=== PATIENT | male | born 1955 | race Caucasian/White ===

== ENCOUNTER 2023-09-05 16:31 | Inpatient (IN) | payer MEDICARE ==
--- NOTE | 2023-09-05 16:55 | ED ---
SOB HPI - General Source: RN notes reviewed <Eloisa Holly - Last Filed: 09/05/23 16:53> <Zakia Gerard - Last Filed: 09/06/23 02:02> - General Stated Complaint: sob Time Seen by Provider: 09/05/23 16:53 - History of Present Illness Initial Comments: Patient is a 68-year-old male who presents the emergency department for shortness of breath and cough. Symptoms started 2 days ago. No fever or chills. No chest pain. Patient has history of COPD. States he got an x-ray as primary care provider's office today and was called told it was abnormal and to go to the ED for evaluation. (Eloisa Holly) Quick note reviewed: 68-year-old male with past medical history significant for hypertension, CHF presents to the emergency department with a chief complaint of worsening shortness of breath. He reports worsening shortness of breath the last 3 weeks. He reports it has progressively gotten worse. He reports typically a dry cough however earlier today he coughed up bright red blood. He reports that he had an x-ray performed by his primary care physician which showed increasing opacities. He denies any known fevers. He has felt chilled and fatigued with associated nausea. Patient reports having to use his rescue inhaler more frequently. He denies any chest pain, palpitations. Patient has previous tobacco use history. (Zakia Gerard) - Related Data Home Medications Medication Instructions Recorded Confirmed Albuterol Inhaler [Ventolin Hfa 2 puff INHALATION RT-Q6H PRN 09/05/23 09/05/23 Inhaler] Aspirin EC [Ecotrin Low Dose] 81 mg PO DAILY 09/05/23 09/05/23 Azithromycin [Zithromax Z Pack] See Taper PO DIRECTED 09/05/23 09/05/23 Cetirizine HCl [Zyrtec] 10 mg PO DAILY 09/05/23 09/05/23 Fluticasone Nasal [place] [Flonase 1 spray EA NOSTRIL DAILY 09/05/23 09/05/23 Nasal [place]] Fluticasone/Umeclidin/Vilanter 1 puff INHALATION RT-DAILY 09/05/23 09/05/23 [Trelegy Ellipta 200-62.5-25] Labetalol [Trandate] 100 mg PO BID 09/05/23 09/05/23 Montelukast [Singulair] 10 mg PO DAILY 09/05/23 09/05/23 Nystatin 100,000 Unit/ml Susp 4 ml PO QID 09/05/23 09/05/23 [Mycostatin Oral Susp] Sulfamethox-Tmp 800-160Mg [Bactrim 1 tab PO Q12HR 09/05/23 09/05/23 DS 800-160 mg] predniSONE [Deltasone] 40 mg PO DAILY 09/05/23 09/05/23 Allergies Allergy/AdvReac Type Severity Reaction Status Date / Time No Known Allergies Allergy Verified 09/05/23 22:57 Review of Systems ROS Other: All systems not noted in ROS Statement are negative. <Eloisa Holly - Last Filed: 09/05/23 16:53> ROS Other: All systems not noted in ROS Statement are negative. <Zakia Gerard - Last Filed: 09/06/23 02:02> ROS Statement: Those systems with pertinent positive or pertinent negative responses have been documented in the HPI. General Exam <Eloisa Holly - Last Filed: 09/05/23 16:53> <Zakia Gerard - Last Filed: 09/06/23 02:02> - General Exam Comments Initial Comments: Visual Physical Exam Vital signs reviewed General: Well-appearing, nontoxic, no acute distress. Head: Normocephalic, atraumatic Eyes: PERRLA, EOMI ENT: Airway patent Chest: Nonlabored breathing Skin: No visual rash, normal skin tone Neuro: Alert and oriented 3 Musculoskeletal: No gross abnormalities (Eloisa Holly) General: Alert, in no acute distress Head: atraumatic normocephalic. Eyes PERRL, EOMI intact, mucous membranes moist Respiratory: Lungs clear to auscultation bilaterally Cardiovascular: Heart rate regular rate and rhythm Abdominal: Soft without guarding or rebound Extremities: Normal inspection with full range of motion and normal capillary refill Neuroogic: alert and oriented 3, CN II-XII intact, able to ambulate with steady gait Skin: warm dry and intact with normal color (Zakia Gerard) Course <Zakia Gerard - Last Filed: 09/06/23 02:02> Vital Signs 09/05/23 09/05/23 09/05/23 16:51 22:34 22:44 Temperature 97.6 F Pulse Rate 83 87 88 Respiratory 16 Rate Blood Pressure 139/57 O2 Sat by Pulse 96 Oximetry 09/05/23 23:28 Temperature Pulse Rate 96 Respiratory 20 Rate Blood Pressure 127/82 O2 Sat by Pulse 97 Oximetry - Reevaluation(s) Reevaluation #1: 09/05/23 21:[address] Arnett who is in the emergency department. Dr. Arnett at bedside to evaluate patient. (Zakia Gerard) Reevaluation #2: 09/05/23 22:50 I interpreted the following: EKG performed at 22:46 rate 89 bpm normal sinus rhythm HI interval 146, QRS duration 97, QT/QTc 350/399 (Zakia Gerard) Reevaluation #3: 09/06/23 00:21 Patient reevaluated and updated on laboratory and CT results. Patient agre eable with the plan for admission. (Zakia Gerard) Medical Decision Making <Eloisa Holly - Last Filed: 09/05/23 16:53> - Lab Data Result diagrams: 09/05/23 22:08 09/05/23 22:08 <Zakia Gerard - Last Filed: 09/06/23 02:02> - Medical Decision Making I performed the QuickNote portion of this chart - Eloisa Holly PA-C (Eloisa Holly) Was pt. sent in by a medical professional or institution (ROSY Noel, [employer], urgent care, hospital, or intermediate...) When possible be specific @ -[No] Did you speak to anyone other than the patient for history (EMS, parent, family, police, friend...)? What history was obtained from this source @ -[No] Did you review nursing and triage notes (agree or disagree)? Why? @ -[I reviewed and agree with nursing and triage notes] Were old charts reviewed (outside hosp., previous admission, EMS record, old EKG, old radiological studies, urgent care reports/EKG's, intermediate records)? Report findings @ -[No old charts were reviewed] Differential Diagnosis (chest pain, altered mental status, abdominal pain women, abdominal pain men, vaginal bleeding, weakness, fever, dyspnea, syncope, headache, dizziness, GI bleed, back pain, seizure, CVA, palpatations, mental health, musculoskeletal)? @ -[not applicable] EKG interpreted by me (3pts min.). @ -[As above] X-rays interpreted by me (1pt min.). @ -[None done] CT interpreted by me (1pt min.). @ -yes U/S interpreted by me (1pt. min.). @ -[None done] What testing was considered but not performed or refused? (CT, X-rays, U/S, labs)? Why? @ -[None] What meds were considered but not given or refused? Why? @ -[None] Did you discuss the management of the patient with other professionals (professionals i.e. , PA, [employer], lab, RT, psych nurse, social secretary, lining finisher, teacher, eeo officer, pillowcase cutter)? Give summary @ -Dr. Arnett Was smoking cessation discussed for >3mins.? @ -[No] Was critical care preformed (if so, how long)? @ -[No] Were there social determinants of health that impacted care today? How? (Homelessness, low income, unemployed, alcoholism, drug addiction, transportation, low edu. Level, literacy, decrease access to med. care, [place] [facility], rehab)? @ -[No] Was there de-escalation of care discussed even if they declined (Discuss DNR or withdrawal of care, Hospice)? DNR status @ -[No] What co-morbidities impacted this encounter? (DM, HTN, Smoking, COPD, CAD, Cancer, CVA, ARF, Chemo, Hep., AIDS, mental health diagnosis, sleep apnea, morbid obesity)? @ -[None] Was patient admitted / discharged? Hospital course, mention meds given and [place], prescriptions, significant lab abnormalities, going to OR and other pertinent info. @ -Admission. This is a pleasant 68-year-old male with past medical history significant for CHF and hypertension who presents the emergency department with increased shortness of breath. Patient had a thorough history and physical exam performed. Physical exam essentially unremarkable. Vital signs stable. Heart rate regular rate and rhythm, lungs clear to auscultation bilaterally abdomen soft and nontender. Patient laboratory studies performed which revealed: WBC 10.6, hemoglobin 15.7 coagulation studies unremarkable, sodium 134 potassium 5.0 BUN 21, creatinine 1.09 troponin negative BNP 48 urinalysis negative. Covid, influenza RSV negative CT reveals large right infra-auricular mass that measures 10.2 x 13.0 cm extending into the inferior mediastinum this may be concerning for lung cancer. There is posterior patchy consolidation in the right lower lobe concerning for pneumonia. I discussed the results in detail with the patient and the patient's family who verbalized understanding all questions were addressed. He'll be started on antibiotics per protocol. Patient should case discussed with Dr. Arnett who agrees and accepts the patient for admission with consult to Dr. Bragg. Case discussed with Dr. Hooper [facility] who agrees with plan of care Undiagnosed new problem with uncertain prognosis? @ -[No] Drug Therapy requiring intensive monitoring for toxicity (Heparin, Nitro, Insulin, Cardizem)? @ -[No] Were any procedures done? @ -[No] Diagnosis/symptom? @ -Shortness of Breath - Right lower lobe Pnuemonia - Perihilar lung mass Acute, or Chronic, or Acute on Chronic? @ -Acute Uncomplicated (without systemic symptoms) or Complicated (systemic symptoms)? @ -Uncomplicated Side effects of treatment? @ -[No] Exacerbation, Progression, or Severe Exacerbation? @ -[No] Poses a threat to life or bodily function? How? (Chest pain, [place], [place], pneumonia, PE, COPD, DKA, ARF, appy, cholecystitis, CVA, Diverticulitis, Homicidal, Suicidal, threat to staff... and all critical care pts) @ -yes, Pneumonia (Zakia Gerard) - Lab Data Lab Results 09/05/23 09/05/23 09/05/23 Range/Units 22:08 22:08 22:08 WBC 10.6 (3.8-10.6) k/uL RBC 5.09 (4.30-5.90) m/uL Hgb 15.7 (13.0-17.5) gm/dL Hct 46.8 (39.0-53.0) % MCV 92.0 (80.0-100.0) fL MCH 30.9 (25.0-35.0) pg MCHC 33.6 (31.0-37.0) g/dL RDW 14.2 (11.5-15.5) % Plt Count 214 (150-450) k/uL MPV 8.2 Neutrophils % 90 % Lymphocytes % 6 % Monocytes % 3 % Eosinophils % 0 % Basophils % 0 % Neutrophils # 9.6 H (1.3-7.7) k/uL Lymphocytes # 0.6 L (1.0-4.8) k/uL Monocytes # 0.3 (0-1.0) k/uL Eosinophils # 0.0 (0-0.7) k/uL Basophils # 0.0 (0-0.2) k/uL PT 11.2 (10.0-12.5) sec INR 1.0 (<1.2) APTT 25.5 (22.0-30.0) sec Sodium 134 L (137-145) mmol/L Potassium 5.0 (3.5-5.1) mmol/L Chloride 102 (98-107) mmol/L Carbon Dioxide 19 L (22-30) mmol/L Anion Gap 13 mmol/L BUN 21 H (9-20) mg/dL Creatinine 1.09 (0.66-1.25) mg/dL Est GFR (CKD-EPI)AfAm 79 (>60 ml/min/1.73 sqM) Est GFR (CKD-EPI)NonAf 68 (>60 ml/min/1.73 sqM) Glucose 148 H (74-99) mg/dL Calcium 9.8 (8.4-10.2) mg/dL Total Bilirubin 1.3 (0.2-1.3) mg/dL AST 27 (17-59) U/L ALT 20 (4-49) U/L Alkaline Phosphatase 91 (38-126) U/L Troponin I (0.000-0.034) ng/mL NT-Pro-B Natriuret Pep 48 pg/mL Total Protein 8.1 (6.3-8.2) g/dL Albumin 4.3 (3.5-5.0) g/dL Influenza Type A (PCR) (Not Detectd) Influenza Type B (PCR) (Not Detectd) RSV (PCR) (Not Detectd) SARS-CoV-2 (PCR) (Not Detectd) 10/17/23 10/17/23 Range/Units 22:08 22:25 WBC (3.8-10.6) k/uL RBC (4.30-5.90) m/uL Hgb (13.0-17.5) gm/dL Hct (39.0-53.0) % MCV (80.0-100.0) fL MCH (25.0-35.0) pg MCHC (31.0-37.0) g/dL RDW (11.5-15.5) % Plt Count (150-450) k/uL MPV Neutrophils % % Lymphocytes % % Monocytes % % Eosinophils % % Basophils % % Neutrophils # (1.3-7.7) k/uL Lymphocytes # (1.0-4.8) k/uL Monocytes # (0-1.0) k/uL Eosinophils # (0-0.7) k/uL Basophils # (0-0.2) k/uL PT (10.0-12.5) sec INR (<1.2) APTT (22.0-30.0) sec Sodium (137-145) mmol/L Potassium (3.5-5.1) mmol/L Chloride (98-107) mmol/L Carbon Dioxide (22-30) mmol/L Anion Gap mmol/L BUN (9-20) mg/dL Creatinine (0.66-1.25) mg/dL Est GFR (CKD-EPI)AfAm (>60 ml/min/1.73 sqM) Est GFR (CKD-EPI)NonAf (>60 ml/min/1.73 sqM) Glucose (74-99) mg/dL Calcium (8.4-10.2) mg/dL Total Bilirubin (0.2-1.3) mg/dL AST (17-59) U/L ALT (4-49) U/L Alkaline Phosphatase (38-126) U/L Troponin I <0.012 (0.000-0.034) ng/mL NT-Pro-B Natriuret Pep pg/mL Total Protein (6.3-8.2) g/dL Albumin (3.5-5.0) g/dL Influenza Type A (PCR) Not Detected (Not Detectd) Influenza Type B (PCR) Not Detected (Not Detectd) RSV (PCR) Not Detected (Not Detectd) SARS-CoV-2 (PCR) Not Detected (Not Detectd) Disposition <Eloisa Holly - Last Filed: 09/05/23 16:53> Is patient prescribed a controlled substance at d/c from ED?: No Time of Disposition: 21:14 <Zakia Gerard - Last Filed: 09/06/23 02:02> Clinical Impression: Community acquired pneumonia, Shortness of breath, Lung mass Disposition: ADMITTED IP TO THIS HOSP Condition: Fair
[2023-09-05] MEDS ORDERED: RX INFO: IV CONTRAST WAS GIVEN 1 EACH MISC MISCELLANE PRN (20:34)
[2023-09-05] MEDS ORDERED: IPRATROPIUM-ALBUTEROL 3 ML NEB INHALATION STA (22:25)
[2023-09-05 22:29] LABS: Basophils % (A) 0 %; Eosinophils % (A) 0 %; HCT 46.8 % (39.0-53.0); HGB 15.7 gm/dL (13.0-17.5); Lymphocytes # (A) 0.6 k/uL (1.0-4.8); Lymphocytes % (A) 6 %; MCH 30.9 pg (25.0-35.0); MCHC 33.6 g/dL (31.0-37.0); Mean Platelet Volume 8.2; Monocytes # (A) 0.3 k/uL (0-1.0); Monocytes % (A) 3 %; Neutrophils # (A) 9.6 k/uL (1.3-7.7); Neutrophils % (A) 90 %; Platelet Count 214 k/uL (150-450); RBC 5.09 m/uL (4.30-5.90); RDW 14.2 % (11.5-15.5); WBC 10.6 k/uL (3.8-10.6)
[2023-09-05 22:33] LABS: ALT 20 U/L (4-49); AST 27 U/L (17-59); African American GFR (CKD) 79 (>60 ml/min/1.73 sqM); Albumin 4.3 g/dL (3.5-5.0); Alkaline Phosphatase 91 U/L (38-126); Anion Gap 13 mmol/L; Blood Urea Nitrogen 21 mg/dL (9-20); Calcium 9.8 mg/dL (8.4-10.2); Carbon Dioxide 19 mmol/L (22-30); Chloride 102 mmol/L (98-107); Glucose 148 mg/dL (74-99); Non-African American GFR(CKD) 68 (>60 ml/min/1.73 sqM); Partial Thromboplastin Time 25.5 sec (22.0-30.0); Prothrombin Time 11.2 sec (10.0-12.5); Sodium 134 mmol/L (137-145); Total Bilirubin 1.3 mg/dL (0.2-1.3); Total Protein 8.1 g/dL (6.3-8.2)
[2023-09-05 22:41] LABS: NT-Pro-B-Type Natriuretic Pept 48 pg/mL
[2023-09-05] MEDS ORDERED: NALOXONE 0.4 MG/ML 1 ML VIAL IV PRN (23:00)
[2023-09-05] MEDS ORDERED: ACETAMINOPHEN TAB 325 MG TAB PO PRN (23:00)
--- NOTE | 2023-09-05 23:40 | CT ---
EXAM: CT Angiography Chest With Intravenous Contrast CLINICAL HISTORY: ITS.REASON CT Reason: hemoptysis TECHNIQUE: Axial computed tomographic angiography images of the chest with intravenous contrast. CTDI is 50.3 mGy and DLP is 529 mGy-cm. This CT exam was performed using one or more of the following dose reduction techniques: automated exposure control, adjustment of the mA and/or kV according to patient size, and/or use of iterative reconstruction technique. MIP reconstructed images were created and reviewed. COMPARISON: No relevant prior studies available. FINDINGS: Pulmonary arteries: Unremarkable. No pulmonary embolism. Aorta: Atherosclerotic changes of the aorta. No thoracic aortic aneurysm. Lungs: Posterior patchy consolidation concerning for RIGHT lower lobar pneumonia. Pleural space: Mild pulmonary vascular redistribution/congestion. No pleural effusions. Cardiomegaly. Correlate for minimal congestive heart failure. No pneumothorax. Heart: See above. Mediastinum: Large RIGHT infrahilar mass measures approximately 10.2 x 13.0 cm, extending into the inferior mediastinum, concerning for lung cancer. Pathologic enlarged mediastinal and hilar lymph nodes. Bones/joints: Degenerative changes of the spine. No acute fracture. No dislocation. Soft tissues: Unremarkable. Lymph nodes: Unremarkable. No enlarged lymph nodes. Kidneys and ureters: Renal cysts. IMPRESSION: 1. Large RIGHT infrahilar mass measures approximately 10.2 x 13.0 cm, extending into the inferior mediastinum, concerning for lung cancer. Pathologic enlarged mediastinal and hilar lymph nodes. 2. Posterior patchy consolidation concerning for RIGHT lower lobar pneumonia. 3. Mild pulmonary vascular redistribution/congestion. No pleural effusions. Cardiomegaly. Correlate for minimal congestive heart failure.
[2023-09-05] MEDS ORDERED: IPRATROPIUM-ALBUTEROL 3 ML NEB INHALATION PRN (23:52)
[2023-09-05] MEDS ORDERED: PNEUMONIA PROTOCOL UTILIZED 1 EACH MISC PO PRN (23:52)
[2023-09-05] MEDS ORDERED: AZITHROMYCIN 500 MG in SODIUM CHLORIDE 0.9% 250 ML IVPB STA (23:52)
[2023-09-06] MEDS: SODIUM CHLORIDE 0.9% 1,000 ML IV SCH (00:24)
[2023-09-06 00:57] LABS: Appearance,Urine Clear (Clear); Bilirubin,Urine Negative (Negative); Blood,Urine Trace (Negative); Color,Urine Colorless; Glucose,Urine (UA) Negative (Negative); Ketones,Urine Trace (Negative); Leukocyte Esterase,Urine Negative (Negative); Nitrite,Urine Negative (Negative); PH, Urine 5.5 (5.0-8.0); Protein,Urine Negative (Negative); RBC,Urine 4 /hpf (0-5); Urobilinogen,Urine <2.0 mg/dL (<2.0); WBC,Urine 1 /hpf (0-5)
[2023-09-06 01:03] LABS: Specific Gravity,Urine >1.050 (1.001-1.035)
--- NOTE | 2023-09-06 03:14 | P.CNPUL ---
History of Present Illness Consult date: 09/06/23 Requesting physician: Jassi Arnett Reason for consult: pneumonia, abnormal CXR/CT Chief complaint: Shortness of breath and cough History of present illness: I am seeing this patient in new consultation today 09/06/2023 in the emergency room after he presented yesterday afternoon with complaints of shortness of breath and hemoptysis. He also had an abnormal chest x-ray at his PCP office, Dr. Leal out of [place]. Patient is a 68-year-old white male with past medical history significant for COPD, former tobacco smoker quit approximately 30 years ago, hypertension. Patient has been suffering from a progressively worsening shortness of breath. Persistent nonproductive cough for the last couple weeks. He was seen in the pulmonary office by Dr. Prasad on August 28 for these symptoms. He was switched to Trelegy Ellipta inhaler. Patient does have moderate chronic obstructive pulmonary disease. The Patient has been experiencing worsening shortness of breath since Monday morning. He also developed small amount of hemoptysis starting yesterday. He denies any significant fevers, chills, chest pain. He does admit an 8 pound weight loss over the last month. He does have a significant previous smoking history, quitting over 10 years ago. Denies history of cancer. 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 There are pathologically enlarged mediastinal and hilar lymph nodes. There was also posterior patchy consolidation concerning for right lower lobe obstructive pneumonia. CBC on arrival was fairly unremarkable. WBC count 10.6, hemoglobin 15.7, hematocrit 46.8, platelets 214. BMP on arrival showed a sodium 134, potassium 5, chloride 102, serum bicarb 19, BUN 21, creatinine 1.09, glucose 148. Troponin less than 0.012. NT proBNP 48. Normal saline is infusing at 20 mL's per hour. He has been started on empiric antibiotics for community acquired pneumonia including azithromycin and ceftriaxone. He is currently sitting up in bed, on room air, in no acute distress. He is just ambulated to the bathroom and back without any respiratory difficulty. No further hemoptysis. Patient appears hemodynamically stable and nontoxic, is being admitted to the general medical floor. Review of Systems REVIEW OF SYSTEMS: CONSTITUTIONAL: Admits 8 pound weight loss over the last month.. EYES: Denies change in vision. EARS, NOSE, MOUTH, THROAT: Denies headaches, denies sore throat. CARDIOVASCULAR: Denies chest pain, palpitations or syncopal episodes. RESPIRATORY: See HPI GASTROINTESTINAL: Denies change in appetite, abdominal pain, nausea and vomiting, or diarrhea GENITOURINARY: Denies hematuria. Admits dysuria and frequency MUSKULOSKELETAL: Denies pain, denies swelling. INTEGUMENTARY: Denies rash, denies eczema. NEUROLOGICAL: Denies recent memory loss, no recent seizure activity. PSYCHIATRIC: Denies anxiety, denies depression. HEMATOLOGIC/LYMPHATIC: Denies anemia, denies enlarged lymph node Past Medical History Past Medical History: Hypertension History of Any Multi-Drug Resistant Organisms: None Reported Past Surgical History: No Surgical Hx Reported Past Psychological History: No Psychological Hx Reported Smoking Status: Never smoker Past Alcohol Use History: None Reported Past Drug Use History: None Reported Medications and Allergies Home Medications Medication Instructions Recorded Confirmed Type Albuterol Inhaler [Ventolin Hfa 2 puff INHALATION RT-Q6H PRN 09/05/23 09/05/23 History Inhaler] Aspirin EC [Ecotrin Low Dose] 81 mg PO DAILY 09/05/23 09/05/23 History Azithromycin [Zithromax Z Pack] See Taper PO DIRECTED 09/05/23 09/05/23 History Cetirizine HCl [Zyrtec] 10 mg PO DAILY 09/05/23 09/05/23 History Fluticasone Nasal [place] [Flonase 1 spray EA NOSTRIL DAILY 09/05/23 09/05/23 History Nasal [place]] Fluticasone/Umeclidin/Vilanter 1 puff INHALATION RT-DAILY 09/05/23 09/05/23 History [Trelegy Ellipta 200-62.5-25] Labetalol [Trandate] 100 mg PO BID 09/05/23 09/05/23 History Montelukast [Singulair] 10 mg PO DAILY 09/05/23 09/05/23 History Nystatin 100,000 Unit/ml Susp 4 ml PO QID 09/05/23 09/05/23 History [Mycostatin Oral Susp] Sulfamethox-Tmp 800-160Mg [Bactrim 1 tab PO Q12HR 09/05/23 09/05/23 History DS 800-160 mg] predniSONE [Deltasone] 40 mg PO DAILY 09/05/23 09/05/23 History Allergies Allergy/AdvReac Type Severity Reaction Status Date / Time No Known Allergies Allergy Verified 09/05/23 22:57 Physical Exam Vitals: Vital Signs Temp Pulse Resp BP Pulse Ox 09/05/23 23:28 96 20 127/82 97 09/05/23 22:44 88 09/05/23 22:34 87 09/05/23 16:51 97.6 F 83 16 139/57 96 Intake and Output 09/05/23 09/05/23 09/06/23 14:59 22:59 06:59 Other: Weight 100.244 kg GENERAL EXAM: Alert, 68-year-old white male. Stated age, comfortable in no apparent distress. HEAD: Normocephalic and atraumatic EYES: Normal reaction of pupils, equal size. NOSE: Clear with pink turbinates. THROAT: No erythema or exudates. NECK: No masses, no JVD. CHEST: No chest wall deformity. LUNGS: Equal air entry with rhonchorous breath sounds of the right lung. Left lung clear on auscultation. On room air. No conversational dyspnea or accessory muscle use.. CVS: S1 and S2 normal with no audible murmur, regular rhythm. No extra heart sounds ABDOMEN: No hepatosplenomegaly, active bowel sounds, no guarding or rigidity. SPINE: No scoliosis or deformity SKIN: No rashes CENTRAL NERVOUS SYSTEM: No focal deficits, tone is normal in all 4 extremities. EXTREMITIES: There is no peripheral edema, clubbing, or cyanosis. Peripheral pulses are intact. Results - Laboratory Findings CBC and BMP: 09/05/23 22:08 09/05/23 22:08 PT/INR, D-dimer PT 11.2 sec (10.0-12.5) 09/05/23 22:08 INR 1.0 (<1.2) 09/05/23 22:08 Abnormal lab findings: Abnormal Labs 09/05/23 09/05/23 09/06/23 22:08 22:08 00:22 Neutrophils # 9.6 H Lymphocytes # 0.6 L Sodium 134 L Carbon Dioxide 19 L BUN 21 H Glucose 148 H Ur Specific [place] >1.050 H Urine Ketones Trace H Urine Blood Trace H - Diagnostic Findings CT scan - chest: image reviewed Assessment and Plan Assessment: Right infrahilar mass, measuring 10.2 x 13 cm ascending into the inferior mediastinum concerning for bronchiogenic carcinoma. There were pathologically enlarged mediastinal and hilar lymph nodes. There was also posterior patchy consolidation concerning for right lower lobe obstructive pneumonia. Suspected community acquired pneumonia, appears post-obstructive Small hemoptysis Exacerbation of moderate chronic obstructive pulmonary disease, currently maintained on Trelegy inhaler on an outpatient basis along with when necessary Ventolin HFA Ex tobacco smoker, quitting 10 years ago Benign essential hypertension Plan: Patient's medications, labs, chest CT were reviewed On room air Continue empiric antibiotics Start patient on bronchodilators, Symbicort, and IV Solu-medrol No further reports of hemoptysis tonight Patient's Chest CT findings are concerning for possible lung cancer. CAT scan results were discussed with patient and daughter at bedside. Recommend follow-up outpatient PET scan Add oncology consult We will continue to follow, and further recommendations are forthcoming. I have personally seen and examined the patient, performed the documentation and the assessment and plan as written. Number of minutes spent on the visit:20 Time with Patient: Greater than 30
[2023-09-06] MEDS: methylPREDNISolone SOD SUCCI 125 MG/2 ML VIAL IV SCH ×3 (06:30→17:48)
[2023-09-06 06:47] LABS: Basophils % (A) 0 %; Eosinophils # (A) 0.1 k/uL (0-0.7); Eosinophils % (A) 1 %; HCT 44.9 % (39.0-53.0); HGB 14.6 gm/dL (13.0-17.5); Lymphocytes # (A) 0.7 k/uL (1.0-4.8); Lymphocytes % (A) 7 %; MCH 30.3 pg (25.0-35.0); MCHC 32.6 g/dL (31.0-37.0); MCV 93.2 fL (80.0-100.0); Mean Platelet Volume 8.8; Monocytes # (A) 0.9 k/uL (0-1.0); Monocytes % (A) 8 %; Neutrophils # (A) 9.3 k/uL (1.3-7.7); Neutrophils % (A) 83 %; Platelet Count 199 k/uL (150-450); RBC 4.82 m/uL (4.30-5.90); RDW 14.3 % (11.5-15.5); WBC 11.1 k/uL (3.8-10.6)
[2023-09-06 07:01] LABS: African American GFR (CKD) >90 (>60 ml/min/1.73 sqM); Anion Gap 10 mmol/L; Blood Urea Nitrogen 20 mg/dL (9-20); Calcium 9.2 mg/dL (8.4-10.2); Carbon Dioxide 20 mmol/L (22-30); Chloride 105 mmol/L (98-107); Glucose 140 mg/dL (74-99); Non-African American GFR(CKD) 81 (>60 ml/min/1.73 sqM); Potassium 4.8 mmol/L (3.5-5.1); Sodium 135 mmol/L (137-145)
[2023-09-06] MEDS ORDERED: SYMBICORT 160-4.5 MCG INHALER INHALATION SCH (08:00)
[2023-09-06] MEDS: IPRATROPIUM-ALBUTEROL 3 ML NEB INHALATION SCH ×4 (08:23→21:10)
--- NOTE | 2023-09-06 10:23 | XR ---
EXAMINATION TYPE: XR chest 2V DATE OF EXAM: 09/06/2023 COMPARISON: NONE TECHNIQUE: PA and lateral views submitted. HISTORY: Difficulty breathing FINDINGS: Bilateral interstitial coarsening hyperinflation compatible COPD. There are is right lower lobe consolidation. Hypertrophic degenerative change of the spine. Bilateral shoulder arthropathy. IMPRESSION: 1. Right lower lobe pneumonia\mass. 2. Correlate for COPD with coarsened interstitium may be on the basis of interstitial pneumonitis or venous congestion.
[2023-09-06] MEDS ORDERED: IOPAMIDOL CONTRAST (ORAL USE) VIAL PO PRN (11:35)
[2023-09-06] MEDS ORDERED: BENZONATATE 100 MG CAP PO PRN (11:36)
--- NOTE | 2023-09-06 16:12 | P.CONS ---
History of Present Illness - Reason for Consult Consult date: 09/06/23 lung mass Requesting physician: Miguel Velasquez - Chief Complaint hemoptysis - History of Present Illness Mr Adame is a pleasant 68-year-old man being seen today in consult for new finding of right lung mass and mediastinal lymphadenopathy. Patient was seen recently for the 1st time by Pulmonary. Pt was referred by his PCP Dr. Leal as his COPD symptoms were progressing. Pt reports intractable cough, wheezing and using his rescue inhaler more in the last few weeks. This was associated with some increasing shortness of breath and flulike symptoms. He had an a bnormal chest x-ray. Patient had his first episode of hemoptysis yesterday, never had before, none since. Pt is in good physical shape overall, PMH COPD, former tobacco and cigar smoker quitting about 10 years ago. He denied fevers, chills, night sweats, swelling of the neck, difficulty swallowing, He thinks he has lost maybe around 8-10 pounds in the last month. He has no personal history of cancer, his mother had a "bowel" cancer that was surgically removed. Patient is walking around the room when seen today. His cough is currently controlled, his breathing is stable, he is not needing oxygen right now. CTA reports large right infrahilar mass 10.2 x 13 cm extending into the inferior mediastinum, enlarged mediastinal and hilar lymph nodes, patchy consolidation in the right lower lobe. Covid, flu, RSV negative, CBC and CMP unremarkable. Review of Systems 10 point ROS is neg except as stated in HPI Past Medical History Past Medical History: Hypertension History of Any Multi-Drug Resistant Organisms: None Reported Past Surgical History: No Surgical Hx Reported Past Anesthesia/Blood Transfusion Reactions: No Reported Reaction Past Psychological History: No Psychological Hx Reported Smoking Status: Former smoker Past Alcohol Use History: None Reported Past Drug Use History: None Reported - Past Family History Father Additional Family Medical History / Comment(s): STROKE Mother Family Medical History: Renal Disease Medications and Allergies Home Medications Medication Instructions Recorded Confirmed Type Albuterol Inhaler [Ventolin Hfa 2 puff INHALATION RT-Q6H PRN 09/05/23 09/05/23 History Inhaler] Aspirin EC [Ecotrin Low Dose] 81 mg PO DAILY 09/05/23 09/05/23 History Azithromycin [Zithromax Z Pack] See Taper PO DIRECTED 09/05/23 09/05/23 History Cetirizine HCl [Zyrtec] 10 mg PO DAILY 09/05/23 09/05/23 History Fluticasone Nasal [place] [Flonase 1 spray EA NOSTRIL DAILY 09/05/23 09/05/23 History Nasal [place]] Fluticasone/Umeclidin/Vilanter 1 puff INHALATION RT-DAILY 09/05/23 09/05/23 History [Trelegy Ellipta 200-62.5-25] Labetalol [Trandate] 100 mg PO BID 09/05/23 09/05/23 History Montelukast [Singulair] 10 mg PO DAILY 09/05/23 09/05/23 History Nystatin 100,000 Unit/ml Susp 4 ml PO QID 09/05/23 09/05/23 History [Mycostatin Oral Susp] Sulfamethox-Tmp 800-160Mg [Bactrim 1 tab PO Q12HR 09/05/23 09/05/23 History DS 800-160 mg] predniSONE [Deltasone] 40 mg PO DAILY 09/05/23 09/05/23 History Allergies Allergy/AdvReac Type Severity Reaction Status Date / Time No Known Allergies Allergy Verified 09/05/23 22:57 Physical Exam Vitals: Vital Signs Temp Pulse Resp BP Pulse Ox 09/06/23 08:31 90 09/06/23 08:24 90 98 09/06/23 06:16 83 18 127/82 98 09/06/23 04:00 87 18 127/82 98 09/05/23 23:28 96 20 127/82 97 09/05/23 22:44 88 09/05/23 22:34 87 09/05/23 16:51 97.6 F 83 16 139/57 96 Intake and Output 09/05/23 09/06/23 09/06/23 22:59 06:59 14:59 Other: Weight 100.244 kg - Constitutional General appearance: average body habitus, cooperative, no acute distress - EENT Eyes: anicteric sclerae, EOMI ENT: hearing grossly normal, normal oropharynx - Neck Neck: no lymphadenopathy - Respiratory Respiratory: bilateral: CTA - Cardiovascular Rhythm: regular Heart sounds: normal: S1, S2 Abnormal Heart Sounds: no systolic murmur, no diastolic murmur, no rub, no S3 Gallop, no S4 Gallop, no click, no other leg Peripheral Edema: bilateral: None - Gastrointestinal General gastrointestinal: no absent bowel sounds, no decreased bowel sounds, no distended, no hepatomegaly, no hyperactive bowel sounds, normal bowel sounds, no organomegaly, no rigid, no scaphoid, soft, no splenomegaly, no tenderness, no umbilical hernia, no ventral hernia - Integumentary Integumentary: normal - Neurologic Neurologic: CNII-XII intact - Musculoskeletal Musculoskeletal: strength equal bilaterally - Psychiatric Psychiatric: A&O x's 3, appropriate affect, intact judgment & insight Results CBC & Chem 7: 09/06/23 05:42 09/06/23 05:42 Labs: Abnormal Lab Results - Last 24 Hours (Table) 09/05/23 09/05/23 09/06/23 Range/Units 22:08 22:08 00:22 WBC (3.8-10.6) k/uL Neutrophils # 9.6 H (1.3-7.7) k/uL Lymphocytes # 0.6 L (1.0-4.8) k/uL Sodium 134 L (137-145) mmol/L Carbon Dioxide 19 L (22-30) mmol/L BUN 21 H (9-20) mg/dL Glucose 148 H (74-99) mg/dL Ur Specific [place] >1.050 H (1.001-1.035) Urine Ketones Trace H (Negative) Urine Blood Trace H (Negative) 09/06/23 09/06/23 Range/Units 05:42 05:42 WBC 11.1 H (3.8-10.6) k/uL Neutrophils # 9.3 H (1.3-7.7) k/uL Lymphocytes # 0.7 L (1.0-4.8) k/uL Sodium 135 L (137-145) mmol/L Carbon Dioxide 20 L (22-30) mmol/L BUN (9-20) mg/dL Glucose 140 H (74-99) mg/dL Ur Specific [place] (1.001-1.035) Urine Ketones (Negative) Urine Blood (Negative) CT scan - chest: report reviewed, image reviewed Assessment and Plan (1) Lung mass Current Visit: Yes Status: Acute Priority: High Code(s): R91.8 - OTHER NONSPECIFIC ABNORMAL FINDING OF LUNG FIELD SNOMED Code(s): 799955852 (2) Hemoptysis Current Visit: Yes Status: Acute Priority: High Code(s): R04.2 - HEMOPTYSIS SNOMED Code(s): 86499588 (3) Shortness of breath Current Visit: Yes Status: Acute Priority: High Code(s): R06.02 - SHORTNESS OF BREATH SNOMED Code(s): 957405158 Plan: Hemoptysis 1, right lung mass, mediastinal lymphadenopathy, Shortness of breath -Reviewed with patient and his the concerning findings on the CT of the chest -Pulmonary is re: planned for bronchoscopy and biopsy this Monday. Agree with the plan. Pending pathology -CT AP and MRI of the brain to complete staging ordered -Patient and verbalized understanding that biopsy needed for diagnosis, imaging is necessary for staging. Both are necessary before treatment options and prognosis can be discussed. -All questions answered to patient's and 's satisfaction at this time. Attests: I have seen and examined pt, performed H&P, developed impression and plan of care. Discussed with dictator. Agree with documentation, dictated as a scribe.
--- NOTE | 2023-09-06 16:46 | MR ---
EXAMINATION TYPE: MR brain wo/w con DATE OF EXAM: 09/06/2023 4:27 PM CLINICAL INDICATION:Male, 68 years old with history of lung mass; COMPARISON: 01/03/2023 TECHNIQUE: Multi planar, multi sequence imaging was performed through the brain including: T1, T2, In version recovery, susceptibility weighted imaging and gradient echo imaging and Diffusion weighted im aging. The patient was then given intravenous contrast and multi planar, T1 fat-saturation images wer e obtained. IV Contrast: 10 cc Gadobutrol FINDINGS: Scattered areas of enhancement compatible with metastatic disease including the right cereb ellar hemisphere measuring 4 mm the left posterior medial frontal lobe measuring 16 x 15 mm, the righ t frontal lobe measuring 6 mm. The largest lesion in the left frontal lobe medially posteriorly does demonstrate blooming artifact compatible with hemorrhage. There is high T2 edema around the foci of m etastatic disease. Diffusion-weighted imaging shows no evidence of restricted diffusion to suggest ac mary/subacute infarct. Intracranial arterial flow voids are maintained. Midline structures show no abn ormality. The susceptibility weighted images do not reveal any evidence for micro-hemorrhage. The bone marrow signal is within normal limits. Paranasal sinuses and mastoid air cells: No significant paranasal sinus disease. Visualized orbits: Orbital contents are intact. IMPRESSION: 1. Evidence of metastatic disease within the bilateral frontal lobes and right cerebral hemisphere. 2. No evidence for acute/subacute CVA.
--- NOTE | 2023-09-06 17:34 | P.HPIM ---
History of Present Illness H&P Date: 09/05/23 Chief Complaint: Short of breath This is a pleasant 68-year-old patient who follows with Dr. Alejandro Leal. About a week ago patient started seeing waste water operator Dr. Prasad. Earlier this year in the spring patient was diagnosed with flu. Patient did improve but now recovered. Having some wheezing. He didn't follow up with his PCP. Was treated antibiotic steroids symptoms still persisted. Ex-smoker. Patient did follow with Dr. Prasad and told he was told that he has reduced lung function. COPD. Patient now presents to ER with his and daughter. Coughing of blood. Since yesterday. Has some low-grade fever and chills. Decreased appetite. Has Lost Some Weight. Review of systems: GEN.: Decreased appetite some weight loss EYES: None HEENT: None NECK: None RESPIRATORY: As above CARDIOVASCULAR: None GASTROINTESTINAL: None GENITOURINARY: None MUSCULOSKELETAL: Joint pains LYMPHATICS: None HEMATOLOGICAL: None PSYCHIATRY: None NEUROLOGICAL: None Past medical history to include: Social history: Patient smoked for about 45 years stopped about 10 years ago. 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 . Physical examination: VITAL SIGNS: 97.6, 83, 16, 139/57, 96% room air GENERAL: BMI 30.8, sitting edge of bed awake not in distress. EYES: Pupils equal. Conjunctiva normal. HEENT: External appearance of nose and ears normal, oral cavity grossly normal. NECK: JVD not raised; masses not palpable. HEART: First and second heart sounds are normal; no edema. LUNGS: Respiratory rate increased; coarse breath sounds and wheezing. Especially on the right side ABDOMEN: Soft, nontender, liver spleen not palpable, no masses palpable. PSYCH: Alert and oriented x3; mood and affect normal. MUSCULOSKELETAL:No Clubbing/cyanosis;muscles-grossly intact. OA NEUROLOGICAL: Cranial nerves grossly intact; no facial asymmetry, power and sensation grossly intact. LYMPHATICS: No lymph nodes palpable in the axilla and neck INVESTIGATIONS, reviewed in the clinical context: September 05: White count 10.6 hemoglobin 15.7 platelets 214 sodium 134 potas sium 5 BUN 21 creatinine 1.09 Assessment and plan: -Patient presents with respiratory symptoms for last few months. Has received outpatient treatment including antibiotics and steroids, with symptoms waxing and waning. Short of breath. Wheezing. Patient now presents with hemoptysis. Consider secondary infection. Underlying viral infection cannot be ruled out. IV steroids. IV antibiotics. Patient will probably need a bronchoscopy. -Acute COPD exacerbation and a prior smoker DuoNeb. Steroids. -Obesity BMI 30.8 Weight loss measures -Essential hypertension Change labetalol to Cozaar because of underlying bronchospasm. Care was discussed. With the patient has and his daughter the bedside. Past Medical History Past Medical History: Hypertension History of Any Multi-Drug Resistant Organisms: None Reported Past Surgical History: No Surgical Hx Reported Past Psychological History: No Psychological Hx Reported Smoking Status: Never smoker Past Alcohol Use History: None Reported Past Drug Use History: None Reported - Past Family History Father Additional Family Medical History / Comment(s): STROKE Mother Family Medical History: Renal Disease Medications and Allergies Home Medications Medication Instructions Recorded Confirmed Type Albuterol Inhaler [Ventolin Hfa 2 puff INHALATION RT-Q6H PRN 09/05/23 09/05/23 History Inhaler] Aspirin EC [Ecotrin Low Dose] 81 mg PO DAILY 09/05/23 09/05/23 History Azithromycin [Zithromax Z Pack] See Taper PO DIRECTED 09/05/23 09/05/23 History Cetirizine HCl [Zyrtec] 10 mg PO DAILY 09/05/23 09/05/23 History Fluticasone Nasal [place] [Flonase 1 spray EA NOSTRIL DAILY 09/05/23 09/05/23 History Nasal [place]] Fluticasone/Umeclidin/Vilanter 1 puff INHALATION RT-DAILY 09/05/23 09/05/23 History [Trelegy Ellipta 200-62.5-25] Labetalol [Trandate] 100 mg PO BID 09/05/23 09/05/23 History Montelukast [Singulair] 10 mg PO DAILY 09/05/23 09/05/23 History Nystatin 100,000 Unit/ml Susp 4 ml PO QID 09/05/23 09/05/23 History [Mycostatin Oral Susp] Sulfamethox-Tmp 800-160Mg [Bactrim 1 tab PO Q12HR 09/05/23 09/05/23 History DS 800-160 mg] predniSONE [Deltasone] 40 mg PO DAILY 09/05/23 09/05/23 History Allergies Allergy/AdvReac Type Severity Reaction Status Date / Time No Known Allergies Allergy Verified 09/05/23 22:57 Physical Exam Vitals: Vital Signs Temp Pulse Resp BP Pulse Ox 09/05/23 16:51 97.6 F 83 16 139/57 96 Intake and Output 09/05/23 09/05/23 09/05/23 06:59 14:59 22:59 Other: Weight 100.244 kg Results CBC & Chem 7: 09/06/23 05:42 09/06/23 05:42 Labs: Abnormal Lab Results - Last 24 Hours (Table) 09/05/23 09/05/23 Range/Units 22:08 22:08 Neutrophils # 9.6 H (1.3-7.7) k/uL Lymphocytes # 0.6 L (1.0-4.8) k/uL Sodium 134 L (137-145) mmol/L Carbon Dioxide 19 L (22-30) mmol/L BUN 21 H (9-20) mg/dL Glucose 148 H (74-99) mg/dL
--- NOTE | 2023-09-06 17:44 | P.PN ---
Progress Note - Text Progress Note Date: 09/06/23 Chief Complaint: Short of breath This is a pleasant 68-year-old patient who follows with Dr. Alejandro Leal. About a week ago patient started seeing sow manager Dr. Prasad. Earlier this year in the spring patient was diagnosed with flu. Patient did improve but now recovered. Having some wheezing. He didn't follow up with his PCP. Was treated antibiotic steroids symptoms still persisted. Ex-smoker. Patient did follow with Dr. Prasad and told he was told that he has reduced lung function. COPD. Patient now presents to ER with his and daughter. Coughing of blood. Since yesterday. Has some low-grade fever and chills. Decreased appetite. Has Lost Some Weight. September 06: Some decrease in cough. No more hemoptysis. Short of breath wheezing. Plan for bronchoscopy and Monday. On IV ceftriaxone. Steroids. Patient has a right hilar mass. Active Medications Acetaminophen (Acetaminophen Tab 325 Mg Tab) 650 mg PO Q6HR PRN PRN Reason: Mild Pain or Fever > 100.5 Albuterol/Ipratropium (Ipratropium-Albuterol 3 Ml Neb) 3 ml INHALATION RT-Q4H PRN PRN Reason: shortness of breath Last Admin: 09/06/23 16:50 Dose: 3 ml Albuterol/Ipratropium (Ipratropium-Albuterol 3 Ml Neb) 3 ml INHALATION RT-QID [facility] Last Admin: 09/06/23 15:53 Dose: Not Given Benzonatate (Benzonatate 100 Mg Cap) 200 mg PO TID PRN PRN Reason: Cough Budesonide (Budesonide 1 Mg/2 Ml Nebu) 1 mg INHALATION RT-BID [facility] Fluticasone Propionate (Fluticasone 50mcg/[place] Nasal 16gm) 2 spray EA NOSTRIL DAILY [facility] Formoterol Fumarate (Formoterol Fumarate 20 Mcg/2 Ml Nebu) 20 mcg INHALATION RT-BID [facility] Sodium Chloride (Saline 0.9%) 1,000 mls @ 20 mls/hr IV .Q24H [facility] Last Admin: 09/06/23 00:24 Dose: 20 mls/hr Azithromycin 500 mg/ Sodium (Chloride) 250 mls @ 250 mls/hr IVPB DAILY@0100 [facility]; Protocol Stop: 09/09/23 01:59 Ceftriaxone Sodium 2 gm/ (Sodium Chloride) 50 mls @ 100 mls/hr IVPB Q24H [facility]; Protocol Iopamidol (Iopamidol Contrast (Oral Use) Vial) 30 ml PO Q60M PRN PRN Reason: CT Scan Stop: 09/07/23 11:36 Loratadine (Loratadine 10 Mg Tab) 10 mg PO DAILY [facility] Losartan Potassium (Losartan 25 Mg Tab) 25 mg PO HS [facility] Methylprednisolone Sodium Succinate (Methylprednisolone Sod Succi 125 Mg/2 Ml Vial) 60 mg IV Q6HR [facility] Last Admin: 09/06/23 12:10 Dose: 60 mg Miscellaneous Information (Rx Info: Iv Contrast Was Given 1 Each Misc) 1 each MISCELLANE DAILY PRN PRN Reason: Per Protocol Stop: 09/07/23 20:35 Miscellaneous Information (Pneumonia Protocol Utilized 1 Each Misc) 1 each PO ONCE PRN PRN Reason: Per Protocol Montelukast Sodium (Montelukast 10 Mg Tab) 10 mg PO HS [facility] Naloxone HCl (Naloxone 0.4 Mg/Ml 1 Ml Vial) 0.2 mg IV Q2M PRN PRN Reason: Opioid Reversal Past medical history to include: Social history: Patient smoked for about 45 years stopped about 10 years ago. 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 . Physical examination: VITAL SIGNS: 97.4, 85, 16, 120/84, 93% room air GENERAL: Sitting at the edge of the bed EYES: Pupils equal. Conjunctiva normal. HEENT: External appearance of nose and ears normal, oral cavity grossly normal. NECK: JVD not raised; masses not palpable. HEART: First and second heart sounds are normal; no edema. LUNGS: Respiratory rate increased; coarse breath sounds and wheezing. Especially on the right side ABDOMEN: Soft, nontender, liver spleen not palpable, no masses palpable. PSYCH: Alert and oriented x3; mood and affect normal. MUSCULOSKELETAL:No Clubbing/cyanosis;muscles-grossly intact. OA INVESTIGATIONS, reviewed in the clinical context: Chest x-ray film personally reviewed by me-right lower lobe mass versus pneumonia. Coarse interstitium. Hyperinflation Chest CTA: Large right infrahilar mass 10.2 x 13 cm. Extending into the inferior mediastinum. Pathologic enlargement of mediastinal and hilar lymph nodes. September 06: White count 11.1 hemoglobin 4.6 potassium 4.8 creatinine 0.95 September 05: White count 10.6 hemoglobin 15.7 platelets 214 sodium 134 potassium 5 BUN 21 creatinine 1.09 Assessment and plan: -Patient presents with respiratory symptoms for last few months. Has received outpatient treatment including antibiotics and steroids, with symptoms waxing and waning. Short of breath. Wheezing. Patient now presents with hemoptysis. Consider secondary infection. Underlying viral infection cannot be ruled out. IV steroids. IV antibiotics. Patient will probably need a bronchoscopy. -Right hilar mass with enlarged lymph nodes.: New Diagnosis Being followed by pulmonary. For bronchoscopy. Oncology consulted -Acute COPD exacerbation and a prior smoker DuoNeb. Steroids. IV. Nebulized Perforomist and Pulmicort. -Obesity BMI 30.8 Weight loss measures -Essential hypertension Cozaar 25 mg daily at bedtime Patient is getting a computed tomography scan abdomen and pelvis and brain MRI. Oncology consulted. For bronchoscopy.
--- NOTE | 2023-09-06 17:57 | CT ---
EXAMINATION TYPE: CT abdomen pelvis w con DATE OF EXAM: 09/06/2023 COMPARISON: NONE HISTORY: 68-year-old male with lung mass, ABD PAIN TECHNIQUE: Contiguous axial scanning of the abdomen and pelvis following administration of 100 ml Iso nancy 300 IV contrast. Delayed images through the kidneys and coronal/sagittal reconstructions perform ed. CT DLP: 1387.9 mGycm Automated exposure control for dose reduction was used. FINDINGS: Heart borderline in size. Cardio effusion. Prominent breathing motion in the lower lungs. L arge masslike area of opacification in the right base redemonstrated. No focal liver lesion or biliary ductal dilatation. Portal venous system is patent. Gallbladder, adrenal glands, right kidney, spleen, and pancreas within normal limits. Left-sided rose marie l cortical cysts measuring up to 3.2 cm. Symmetric uptake and excretion of contrast from both kidneys . No dilated small bowel, free fluid, or free air. No mesenteric or retroperitoneal lymphadenopathy. Normal appendix. Mild overall stone burden. Mild sigmoid diverticulosis. Mildly redundant sigmoid col on. No pericolonic inflammatory change. There is a 6.0 cm fusiform infrarenal AAA spanning 10 cm to the aortic bifurcation. There is contiguo us fusiform enlargement of the right common iliac artery up to 3.2 cm and left common iliac artery up to 2.7 cm. There is a 2.3 cm fusiform aneurysm right internal iliac artery and 2.0 cm fusiform aneurysm left int ernal iliac artery. Bladder is urine distended. Prostate gland normal at 3.9 cm wide. No abnormal fluid collection in the pelvis or pelvic lymphadenopathy. Bones: Facet arthropathy mid to lower lumbar spine. [facility] within the lower thoracic spine. IMPRESSION: 1. KNOWN MASSLIKE CONSOLIDATION, PARTIALLY VISUALIZED MEDIAL RIGHT BASE. 2. A 6.0 cm fusiform infrarenal AAA spanning 10 cm to the aortic bifurcation. 3. Additional aneurysms of the right and left common iliac arteries at 3.2 x 2.7 cm, respectively. 4. Additional aneurysms of the right and left internal iliac arteries at 2.3 and 2.0 cm, respectively . 5. Mild sigmoid diverticulosis without acute diverticulitis.
[2023-09-06] MEDS: FORMOTEROL FUMARATE 20 MCG/2 ML NEBU INHALATION SCH (21:10)
[2023-09-06] MEDS: BUDESONIDE 1 MG/2 ML NEBU INHALATION SCH (21:10)
[2023-09-06] MEDS: MONTELUKAST 10 MG TAB PO SCH (21:35)
[2023-09-06] MEDS: LOSARTAN 25 MG TAB PO SCH (21:35)
[2023-09-07] MEDS: AZITHROMYCIN 500 MG in SODIUM CHLORIDE 0.9% 250 ML IVPB SCH (06:17)
[2023-09-07] MEDS: methylPREDNISolone SOD SUCCI 125 MG/2 ML VIAL IV SCH ×4 (06:17→17:34)
[2023-09-07] MEDS: SODIUM CHLORIDE 0.9% 1,000 ML IV SCH (06:17)
[2023-09-07] MEDS: BUDESONIDE 1 MG/2 ML NEBU INHALATION SCH ×2 (08:48→21:54)
[2023-09-07] MEDS: IPRATROPIUM-ALBUTEROL 3 ML NEB INHALATION SCH ×4 (08:48→21:54)
[2023-09-07] MEDS: FORMOTEROL FUMARATE 20 MCG/2 ML NEBU INHALATION SCH ×2 (08:48→21:54)
[2023-09-07] MEDS: LORATADINE 10 MG TAB PO SCH (09:36)
[2023-09-07] MEDS: FLUTICASONE 50MCG/SPRAY NASAL 16GM EA NOSTRIL SCH (09:38)
--- NOTE | 2023-09-07 13:14 | P.PN ---
Subjective Progress Note Date: 09/07/23 Principal diagnosis: lung mass, mediastinal LAD Patient seen today in follow-up, he has no acute complaints, denies any other hemoptysis, unusual pain. Objective - Vital Signs Vital signs: Vital Signs Temp 98.3 F 09/07/23 06:57 Pulse 84 09/07/23 08:48 Resp 18 09/07/23 06:57 BP 125/66 09/07/23 06:57 Pulse Ox 92 L 09/07/23 06:57 FiO2 Intake & Output 09/06/23 09/07/23 09/07/23 18:59 06:59 18:59 Weight 100.244 kg Other: Voiding Method Toilet # Voids 3 1 - Constitutional General appearance: Present: average body habitus, cooperative, no acute distress - EENT Eyes: Present: anicteric sclerae, EOMI ENT: Present: hearing grossly normal, normal oropharynx - Respiratory Respiratory: bilateral: CTA - Cardiovascular Rhythm: regular Heart sounds: normal: S1, S2 Abnormal Heart Sounds: Absent: systolic murmur, diastolic murmur, rub, S3 Gallop, S4 Gallop, click, other - Peripheral edema leg Peripheral Edema: bilateral: None - Gastrointestinal General gastrointestinal: Present: normal bowel sounds, soft - Integumentary Integumentary: Present: normal - Neurologic Neurologic: Present: CNII-XII intact (Grossly) - Musculoskeletal Musculoskeletal: Present: strength equal bilaterally - Psychiatric Psychiatric: Present: A&O x's 3, appropriate affect, intact judgment & insight - Labs CBC & Chem 7: 09/06/23 05:42 09/06/23 05:42 Labs: Microbiology - Last 24 Hours (Table) 09/05/23 22:20 Blood Culture - Preliminary Blood 09/05/23 22:35 Blood Culture - Preliminary Blood - Imaging and Cardiology CT scan - abdomen: report reviewed CT scan - pelvis: report reviewed MRI - head: report reviewed, image reviewed Assessment and Plan (1) Lung mass Current Visit: Yes Status: Acute Priority: High Code(s): R91.8 - OTHER NONSPECIFIC ABNORMAL FINDING OF LUNG FIELD SNOMED Code(s): 612870899 (2) Hemoptysis Current Visit: Yes Status: Acute Priority: High Code(s): R04.2 - HEMOPTYSIS SNOMED Code(s): 29720497 (3) Shortness of breath Current Visit: Yes Status: Acute Priority: High Code(s): R06.02 - SHORTNESS OF BREATH SNOMED Code(s): 686105856 Plan: Hemoptysis 1, right lung mass, mediastinal lymphadenopathy, Shortness of breath -Reviewed with patient and his the concerning findings on the CT of the chest -Pulmonary has planned for bronchoscopy and biopsy this Monday. Agree with the plan. Pending pathology -CT AP no evidence of distant metastasis. -MRI of the brain unfortunately showing 3 lesions, largest lt frontal lobe lesion, 1.6cm. Discussed case with Radiation Oncologist, Rad Onc consulted -Updated pt and . Did discuss stage IV disease, intent of any treatment is palliation of symptoms and prolongation of life. Treatment options will be systemic therapy and radiation to some extent. Treatment options will be discussed once pathology is resulted. They were also made aware that tissue was sent on for biomarker evaluation, targeted therapy/immunotherapy assessment for other treatment options. -All questions answered to patient's and 's satisfaction at this time. Attests: I have seen and examined pt, performed H&P, developed impression and plan of care. Discussed with dictator. Agree with documentation, dictated as a scribe. Time with Patient: Greater than 30 (Counseling and coordinating care)
[2023-09-07] MEDS: PANTOPRAZOLE 40 MG TABLET PO SCH (13:51)
--- NOTE | 2023-09-07 14:53 | P.PN ---
Subjective Progress Note Date: 09/07/23 I am seeing this patient in new consultation today 09/06/2023 in the emergency room after he presented yesterday afternoon with complaints of shortness of breath and hemoptysis. He also had an abnormal chest x-ray at his PCP office, Dr. Leal out of [place]. Patient is a 68-year-old white male with past medical history significant for COPD, former tobacco smoker quit approximately 30 years ago, hypertension. Patient has been suffering from a progressively worsening shortness of breath. Persistent nonproductive cough for the last couple weeks. He was seen in the pulmonary office by Dr. Prasad on August 28 for these symptoms. He was switched to Trelegy Ellipta inhaler. Patient does have moderate chronic obstructive pulmonary disease. The Patient has been experiencing worsening shortness of breath since Monday morning. He also developed small amount of hemoptysis starting yesterday. He denies any significant fevers, chills, chest pain. He does admit an 8 pound weight loss over the last month. He does have a significant previous smoking history, quitting over 10 years ago. Denies history of cancer. 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 There are pathologically enlarged mediastinal and hilar lymph nodes. There was also posterior patchy consolidation concerning for right lower lobe obstructive pneumonia. CBC on arrival was fairly unremarkable. WBC count 10.6, hemoglobin 15.7, hematocrit 46.8, platelets 214. BMP on arrival showed a sodium 134, potassium 5, chloride 102, serum bicarb 19, BUN 21, creatinine 1.09, glucose 148 . Troponin less than 0.012. NT proBNP 48. Normal saline is infusing at 20 mL's per hour. He has been started on empiric antibiotics for community acquired pneumonia including azithromycin and ceftriaxone. He is currently sitting up in bed, on room air, in no acute distress. He is just ambulated to the bathroom and back without any respiratory difficulty. No further hemoptysis. Patient appears hemodynamically stable and nontoxic, is being admitted to the general medical floor. The patient is seen today 09/07/2023 in follow-up on the regular medical floor. He is currently sitting up in a chair at the bedside. His is present. He denies any worsening shortness of breath, cough or congestion. He is maintaining O2 saturations in the 90s on room air. He is afebrile. Hemodynami lina stable. He is continued on Pulmicort and Perforomist inhalations, DuoNeb inhalations, Solu-Medrol. He remains on ceftriaxone and azithromycin for suspected postobstructive pneumonia. MRI of the brain reveals evidence of metastatic disease within the bilateral frontal lobes and right cerebral hemisphere. Computed tomography scan of the abdomen and pelvis reveals a 6 cm fusiform infrarenal abdominal aortic aneurysm spinning 10 cm to the aortic bifurcation. There is contiguous fusiform enlargement of the right common iliac artery up to 3.2 cm the left common iliac artery up to 2.7 cm. There is a 2.3 cm fusiform aneurysm in the right internal iliac artery and a 2.0 cm fusiform aneurysm in the left internal iliac artery. Blood cultures are pending. Sputum culture pending. Objective - Vital Signs Vital signs: Vital Signs Temp 97.8 F 09/07/23 13:44 Pulse 98 09/07/23 13:44 Resp 18 09/07/23 13:44 BP 126/74 09/07/23 13:44 Pulse Ox 93 L 09/07/23 13:44 FiO2 Intake & Output 09/06/23 09/07/23 09/07/23 18:59 06:59 18:59 Weight 100.244 kg Other: Voiding Method Toilet # Voids 3 1 - Exam GENERAL EXAM: Alert, very pleasant 68-year-old male. Up in a chair, comfortable in no apparent distress. HEAD: Normocephalic and atraumatic EYES: Normal reaction of pupils, equal size. NOSE: Clear with pink turbinates. THROAT: No erythema or exudates. NECK: No masses, no JVD. CHEST: No chest wall deformity. LUNGS: Equal air entry with rhonchorous breath sounds of the right lung. Left lung clear on auscultation. On room air. CVS: S1 and S2 normal with no audible murmur, regular rhythm. No extra heart sounds ABDOMEN: No hepatosplenomegaly, active bowel sounds, no guarding or rigidity. SPINE: No scoliosis or deformity SKIN: No rashes CENTRAL NERVOUS SYSTEM: No focal deficits, tone is normal in all 4 extremities. EXTREMITIES: There is no peripheral edema, clubbing, or cyanosis. Peripheral pulses are intact. 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 There were pathologically enlarged mediastinal and hilar lymph nodes. There was also posterior patchy consolidation concerning for right lower lobe obstructive pneumonia. MRI of the brain reveals evidence of metastatic disease within the bilateral frontal lobes and right cerebral hemisphere. Suspected community acquired pneumonia, appears post-obstructive Abdominal aortic aneurysm. Computed tomography scan of the abdomen and pelvis reveals a 6 cm fusiform infrarenal abdominal aortic aneurysm spinning 10 cm to the aortic bifurcation. There is contiguous fusiform enlargement of the right common iliac artery up to 3.2 cm the left common iliac artery up to 2.7 cm. There is a 2.3 cm fusiform aneurysm in the right internal iliac artery and a 2.0 cm fusiform aneurysm in the left internal iliac artery. Exacerbation of moderate chronic obstructive pulmonary disease, currently maintained on Trelegy inhaler on an outpatient basis along with when necessary Ventolin HFA Ex tobacco smoker, quitting 10 years ago Benign essential hypertension Plan: The patient was seen and evaluated CT scans, MRI, labs and medications reviewed Plan is for bronchoscopy with biopsies tomorrow Continue the current treatment plan Currently stable and on room air We will continue to follow I have personally seen and examined the patient, performed the documentation and the assessment and plan as written. Number of minutes spent on the visit: 10.
[2023-09-07] MEDS: MONTELUKAST 10 MG TAB PO SCH (21:23)
[2023-09-07] MEDS: LOSARTAN 25 MG TAB PO SCH (21:23)
[2023-09-08] MEDS: methylPREDNISolone SOD SUCCI 125 MG/2 ML VIAL IV SCH ×4 (00:18→18:05)
[2023-09-08] MEDS: AZITHROMYCIN 500 MG in SODIUM CHLORIDE 0.9% 250 ML IVPB SCH (01:40)
[2023-09-08] MEDS: SODIUM CHLORIDE 0.9% 1,000 ML IV SCH (01:41)
[2023-09-08] MEDS: PANTOPRAZOLE 40 MG TABLET PO SCH (06:41)
[2023-09-08] MEDS: BUDESONIDE 1 MG/2 ML NEBU INHALATION SCH ×2 (08:50→19:44)
[2023-09-08] MEDS: FORMOTEROL FUMARATE 20 MCG/2 ML NEBU INHALATION SCH ×2 (08:50→19:44)
[2023-09-08] MEDS: IPRATROPIUM-ALBUTEROL 3 ML NEB INHALATION SCH ×4 (08:50→19:44)
[2023-09-08] MEDS: FLUTICASONE 50MCG/SPRAY NASAL 16GM EA NOSTRIL SCH (12:36)
[2023-09-08] MEDS: LORATADINE 10 MG TAB PO SCH (12:38)
[2023-09-08] MEDS ORDERED: LACTATED RINGERS 1,000 ML IV ONE ×2 (13:19→15:15)
--- NOTE | 2023-09-08 13:40 | P.PN ---
Progress Note - Text Progress Note Date: 09/08/23 Chief Complaint: Short of breath This is a pleasant 68-year-old patient who follows with Dr. Alejandro Leal. About a week ago patient started seeing securities attorney Dr. Prasad. Earlier this year in the spring patient was diagnosed with flu. Patient did improve but now recovered. Having some wheezing. He didn't follow up with his PCP. Was treated antibiotic steroids symptoms still persisted. Ex-smoker. Patient did follow with Dr. Prasad and told he was told that he has reduced lung function. COPD. Patient now presents to ER with his and daughter. Coughing of blood. Since yesterday. Has some low-grade fever and chills. Decreased appetite. Has Lost Some Weight. September 06: Some decrease in cough. No more hemoptysis. Short of breath wheezing. Plan for bronchoscopy and Monday. On IV ceftriaxone. Steroids. Patient has a right hilar mass. September 07: Some shortness of breath and wheezing. Did cough up some more blood. at the bedside. For bronchoscopy tomorrow. September 08: Patient is pending bronchoscopy this afternoon. Coughing up some blood. Some wheezing. Family the bedside. Nothing by mouth. Active Medications Acetaminophen (Acetaminophen Tab 325 Mg Tab) 650 mg PO Q6HR PRN PRN Reason: Mild Pain or Fever > 100.5 Albuterol/Ipratropium (Ipratropium-Albuterol 3 Ml Neb) 3 ml INHALATION RT-Q4H PRN PRN Reason: shortness of breath Last Admin: 09/06/23 16:50 Dose: 3 ml Albuterol/Ipratropium (Ipratropium-Albuterol 3 Ml Neb) 3 ml INHALATION RT-QID [facility] Last Admin: 09/08/23 11:25 Dose: 3 ml Benzonatate (Benzonatate 100 Mg Cap) 200 mg PO TID PRN PRN Reason: Cough Budesonide (Budesonide 1 Mg/2 Ml Nebu) 1 mg INHALATION RT-BID [facility] Last Admin: 09/08/23 08:50 Dose: Not Given Fluticasone Propionate (Fluticasone 50mcg/Galt Nasal 16gm) 2 spray EA NOSTRIL DAILY [facility] Last Admin: 09/08/23 12:36 Dose: 2 spray Formoterol Fumarate (Formoterol Fumarate 20 Mcg/2 Ml Nebu) 20 mcg INHALATION RT-BID [facility] Last Admin: 09/08/23 08:50 Dose: Not Given Sodium Chloride (Saline 0.9%) 1,000 mls @ 20 mls/hr IV .Q24H [facility] Last Admin: 09/08/23 01:41 Dose: 20 mls/hr Azithromycin 500 mg/ Sodium (Chloride) 250 mls @ 250 mls/hr IVPB DAILY@0100 [facility]; Protocol Stop: 09/09/23 01:59 Last Admin: 09/08/23 01:40 Dose: 250 mls/hr Ceftriaxone Sodium 2 gm/ (Sodium Chloride) 50 mls @ 100 mls/hr IVPB Q24H [facility]; Protocol Last Admin: 09/08/23 00:18 Dose: 100 mls/hr Loratadine (Loratadine 10 Mg Tab) 10 mg PO DAILY [facility] Last Admin: 09/08/23 12:38 Dose: Not Given Losartan Potassium (Losartan 25 Mg Tab) 25 mg PO [facility] Last Admin: 09/07/23 21:23 Dose: 25 mg Methylprednisolone Sodium Succinate (Methylprednisolone Sod Succi 125 Mg/2 Ml Vial) 60 mg IV Q6HR [facility] Last Admin: 09/08/23 12:37 Dose: 60 mg Miscellaneous Information (Pneumonia Protocol Utilized 1 Each Misc) 1 each PO ONCE PRN PRN Reason: Per Protocol Montelukast Sodium (Montelukast 10 Mg Tab) 10 mg PO [facility] Last Admin: 09/07/23 21:23 Dose: 10 mg Naloxone HCl (Naloxone 0.4 Mg/Ml 1 Ml Vial) 0.2 mg IV Q2M PRN PRN Reason: Opioid Reversal Pantoprazole Sodium (Pantoprazole 40 Mg Tablet) 40 mg PO AC-[id number] [facility] Last Admin: 09/08/23 06:41 Dose: 40 mg Past medical history to include: Social history: Patient smoked for about 45 years stopped about 10 years ago. 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 . Physical examination: VITAL SIGNS: 97.5, 94, 16, 128/77, 93% room air GENERAL: Reclining in bed EYES: Pupils equal. Conjunctiva normal. HEENT: External appearance of nose and ears normal, oral cavity grossly normal. NECK: JVD not raised; masses not palpable. HEART: First and second heart sounds are normal; no edema. LUNGS: Respiratory rate increased; coarse breath sounds and wheezing. Especially on the right side ABDOMEN: Soft, nontender, liver spleen not palpable, no masses palpable. PSYCH: Alert and oriented x3; mood and affect normal. MUSCULOSKELETAL:No Clubbing/cyanosis;muscles-grossly intact. OA INVESTIGATIONS, reviewed in the clinical context: CT abdomen pelvis with contrast: 6 cm fusiform infrarenal AAA spanning density because of the aortic bifurcation. Cardiac was fusiform enlargement of the right common iliac artery up to 3.2 cm. Left common iliac artery up to 2.7 cm. Also that of the right internal iliac artery MRI of the brain with and without contrast: Evidence of metastatic disease to bilateral frontal lobes and right cerebral hemisphere. Chest x-ray film personally reviewed by me-right lower lobe mass versus pneumonia. Coarse interstitium. Hyperinflation Chest CTA: Large right infrahilar mass 10.2 x 13 cm. Extending into the inferior mediastinum. Pathologic enlargement of mediastinal and hilar lymph nodes. September 06: White count 11.1 hemoglobin 4.6 potassium 4.8 creatinine 0.95 September 05: White count 10.6 hemoglobin 15.7 platelets 214 sodium 134 potassium 5 BUN 21 creatinine 1.09 Assessment and plan: -Pneumonia suspect gram-negative organism.: Slow to respond IV steroids. IV antibiotics. Endoscopy scheduled this afternoon -Right hilar mass with enlarged lymph nodes.: Being followed by pulmonary. For bronchoscopy today. Oncology consulted -6 cm fusiform infrarenal AAA and additional fusiform enlargement of the left and right atrial neck arteries. Vascular consulted -Sigmoid diverticulosis. Unremarkable -Acute COPD exacerbation and a prior smoker: Slow to respond DuoNeb. Steroids. IV. Nebulized Perforomist and Pulmicort. -Obesity BMI 30.8 Weight loss measures -Essential hypertension Cozaar 25 mg daily at bedtime Pending bronchoscopy today. Nothing by mouth. Other medications to continue.
[2023-09-08] MEDS ORDERED: PROPOFOL 10 MG/ML 20 ML VIAL IV ONE (14:30)
[2023-09-08] MEDS ORDERED: PHENYLEPHRINE-0.9% NACL SYG 1,000 MCG/10 ML SYRINGE ONE (14:30)
[2023-09-08] MEDS ORDERED: LIDOCAINE 2% (PF) 20 MG/ML 5 ML VIAL ONE (14:30)
[2023-09-08] MEDS ORDERED: SUCCINYLCHOLINE CHLORIDE 200 MG/10 ML VIAL IV ONE (14:30)
[2023-09-08] MEDS ORDERED: NEOSTIGMINE 1 MG/ML 10 ML VIAL ONE (14:30)
[2023-09-08] MEDS ORDERED: fentaNYL (PF) 50 MCG/ML 2 ML AMP ONE (14:30)
[2023-09-08] MEDS ORDERED: MIDAZOLAM 2 MG/2 ML VIAL ONE (14:30)
[2023-09-08] MEDS ORDERED: ROCURONIUM 10 MG/ML (5 ML VIAL) IV ONE (14:30)
[2023-09-08] MEDS ORDERED: GLYCOPYRROLATE 0.2 MG/ML 2 ML VIAL ONE (14:30)
[2023-09-08 16:13] VITALS: RESP 18
--- NOTE | 2023-09-08 16:37 | P.PN ---
Subjective Progress Note Date: 09/08/23 I am seeing this patient in new consultation today 09/06/2023 in the emergency room after he presented yesterday afternoon with complaints of shortness of breath and hemoptysis. He also had an abnormal chest x-ray at his PCP office, Dr. Leal out of [place]. Patient is a 68-year-old white male with past medical history significant for COPD, former tobacco smoker quit approximately 30 years ago, hypertension. Patient has been suffering from a progressively worsening shortness of breath. Persistent nonproductive cough for the last couple weeks. He was seen in the pulmonary office by Dr. Prasad on August 28 for these symptoms. He was switched to Trelegy Ellipta inhaler. Patient does have moderate chronic obstructive pulmonary disease. The Patient has been experiencing worsening shortness of breath since Monday morning. He also developed small amount of hemoptysis starting yesterday. He denies any significant fevers, chills, chest pain. He does admit an 8 pound weight loss over the last month. He does have a significant previous smoking history, quitting over 10 years ago. Denies history of cancer. 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 There are pathologically enlarged mediastinal and hilar lymph nodes. There was also posterior patchy consolidation concerning for right lower lobe obstructive pneumonia. CBC on arrival was fairly unremarkable. WBC count 10.6, hemoglobin 15.7, hematocrit 46.8, platelets 214. BMP on arrival showed a sodium 134, potassium 5, chloride 102, serum bicarb 19, BUN 21, creatinine 1.09, glucose 148 . Troponin less than 0.012. NT proBNP 48. Normal saline is infusing at 20 mL's per hour. He has been started on empiric antibiotics for community acquired pneumonia including azithromycin and ceftriaxone. He is currently sitting up in bed, on room air, in no acute distress. He is just ambulated to the bathroom and back without any respiratory difficulty. No further hemoptysis. Patient appears hemodynamically stable and nontoxic, is being admitted to the general medical floor. The patient is seen today 09/07/2023 in follow-up on the regular medical floor. He is currently sitting up in a chair at the bedside. His is present. He denies any worsening shortness of breath, cough or congestion. He is maintaining O2 saturations in the 90s on room air. He is afebrile. Hemodynami lina stable. He is continued on Pulmicort and Perforomist inhalations, DuoNeb inhalations, Solu-Medrol. He remains on ceftriaxone and azithromycin for suspected postobstructive pneumonia. MRI of the brain reveals evidence of metastatic disease within the bilateral frontal lobes and right cerebral hemisphere. Computed tomography scan of the abdomen and pelvis reveals a 6 cm fusiform infrarenal abdominal aortic aneurysm spinning 10 cm to the aortic bifurcation. There is contiguous fusiform enlargement of the right common iliac artery up to 3.2 cm the left common iliac artery up to 2.7 cm. There is a 2.3 cm fusiform aneurysm in the right internal iliac artery and a 2.0 cm fusiform aneurysm in the left internal iliac artery. Blood cultures are pending. Sputum culture pending. The patient is seen today 09/08/2023 in follow-up on the regular medical floor. He is up ambulating in his room. Awake and alert in no acute distress. He is maintaining good O2 saturations in the 90s on room air. He's been afebrile. Hemodynamically stable. No IV fluids. He remains on DuoNeb inhalations, Pulmicort and Perforomist inhalations, Solu-Medrol. Antibiotics in the form of ceftriaxone and azithromycin. Tessalon Perles for his cough. Cultures are revealing no growth. Sputum culture revealed no growth. The plan is for bronchoscopy with BAL and biopsies today. Objective - Vital Signs Vital signs: Vital Signs Temp 97 F L 09/08/23 15:15 Pulse 95 09/08/23 16:00 Resp 18 09/08/23 16:00 BP 115/79 09/08/23 16:00 Pulse Ox 93 L 09/08/23 16:00 FiO2 Intake & Output 09/07/23 09/08/23 09/08/23 18:59 06:59 18:59 Intake Total 900 Balance 900 Intake: IV 900 Other: # Voids 1 0 - Exam GENERAL EXAM: Alert, pleasant 68-year-old male. Up ambulating in his room, room air, comfortable in no apparent distress. HEAD: Normocephalic and atraumatic EYES: Normal reaction of pupils, equal size. NOSE: Clear with pink turbinates. THROAT: No erythema or exudates. NECK: No masses, no JVD. CHEST: No chest wall deformity. LUNGS: Equal air entry with rhonchorous breath sounds of the right lung. Left lung clear on auscultation. CVS: S1 and S2 normal with no audible murmur, regular rhythm. No extra heart sounds ABDOMEN: No hepatosplenomegaly, active bowel sounds, no guarding or rigidity. SPINE: No scoliosis or deformity SKIN: No rashes CENTRAL NERVOUS SYSTEM: No focal deficits, tone is normal in all 4 extremities. EXTREMITIES: There is no peripheral edema, clubbing, or cyanosis. Peripheral pulses are intact. 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 There were pathologically enlarged mediastinal and hilar lymph nodes. There was also posterior patchy consolidation concerning for right lower lobe obstructive pneumonia. MRI of the brain reveals evidence of metastatic disease within the bilateral frontal lobes and right cerebral hemisphere. Suspected community acquired pneumonia, appears post-obstructive Abdominal aortic aneurysm. Computed tomography scan of the abdomen and pelvis reveals a 6 cm fusiform infrarenal abdominal aortic aneurysm spinning 10 cm to the aortic bifurcation. There is contiguous fusiform enlargement of the right common iliac artery up to 3.2 cm the left common iliac artery up to 2.7 cm. There is a 2.3 cm fusiform aneurysm in the right internal iliac artery and a 2.0 cm fusiform aneurysm in the left internal iliac artery. Exacerbation of moderate chronic obstructive pulmonary disease, currently maintained on Trelegy inhaler on an outpatient basis along with when necessary Ventolin HFA Ex tobacco smoker, quitting 10 years ago Benign essential hypertension Plan: The patient was seen and evaluated Medications reviewed Plan is for bronchoscopy with biopsies today Continue the current treatment plan Currently stable and on room air We will continue to follow I have personally seen and examined the patient, performed the documentation and the assessment and plan as written. Number of minutes spent on the visit: 10.
--- NOTE | 2023-09-08 19:22 | P.PN ---
Subjective Progress Note Date: 09/08/23 Principal diagnosis: lung mass Patient seen today in follow-up, he has no acute complaints, denies any other hemoptysis. Reports feeling well. Scheduled today for lung biopsy Objective - Vital Signs Vital signs: Vital Signs Temp 97 F L 09/08/23 15:15 Pulse 73 09/08/23 17:10 Resp 18 09/08/23 17:10 BP 135/80 09/08/23 17:10 Pulse Ox 93 L 09/08/23 17:10 FiO2 Intake & Output 09/08/23 09/08/23 09/09/23 06:59 18:59 06:59 Intake Total 900 Balance 900 Intake: IV 900 Other: # Voids 0 4 - Constitutional General appearance: Present: average body habitus, no acute distress - EENT Eyes: Present: anicteric sclerae ENT: Present: hearing grossly normal - Respiratory Details: breathing is even and unlabored - Cardiovascular Details: skin warm and dry - Integumentary Integumentary: Absent: cyanotic - Neurologic Neurologic: Present: CNII-XII intact - Musculoskeletal Musculoskeletal: Present: strength equal bilaterally - Psychiatric Psychiatric: Present: A&O x's 3, appropriate affect, intact judgment & insight - Labs CBC & Chem 7: 09/06/23 05:42 09/06/23 05:42 Labs: Microbiology - Last 24 Hours (Table) 09/06/23 08:24 Gram Stain - Final Sputum Sputum Culture - Final 09/05/23 22:20 Blood Culture - Preliminary Blood 09/05/23 22:35 Blood Culture - Preliminary Blood Assessment and Plan (1) Hemoptysis Current Visit: Yes Status: Acute Priority: High Code(s): R04.2 - HEMOP TYSIS SNOMED Code(s): 10337762 (2) Lung mass Current Visit: Yes Status: Acute Priority: High Code(s): R91.8 - OTHER NONSPECIFIC ABNORMAL FINDING OF LUNG FIELD SNOMED Code(s): 013211743 Plan: Right lung mass, mediastinal lymphadenopathy: -Reviewed with patient and his the concerning findings on the CT of the chest -Plan for bronchoscopy and biopsy today. Pending pathology -CT AP no evidence of distant metastasis. -MRI of the brain unfortunately showing 3 lesions, largest lt frontal lobe lesion, 1.6cm. Discussed case with Radiation Oncologist, Rad Onc consulted -Updated pt and . Did discuss stage IV disease, intent of any treatment is palliation of symptoms and prolongation of life. Treatment options will be systemic therapy and radiation to some extent. Treatment options will be discussed once pathology is resulted. They were also made aware that tissue was sent on for biomarker evaluation, targeted therapy/immunotherapy assessment for other treatment options. -All questions answered to patient's and 's satisfaction at this time
[2023-09-08] MEDS: LOSARTAN 25 MG TAB PO SCH (21:15)
[2023-09-08] MEDS: MONTELUKAST 10 MG TAB PO SCH (21:15)
[2023-09-08 23:12] LABS: Appearance,BF Bloody (Clear); RBC, Body Fluid 83000 /UL (0-2000)
[2023-09-09] MEDS: methylPREDNISolone SOD SUCCI 125 MG/2 ML VIAL IV SCH ×2 (00:40→06:29)
[2023-09-09] MEDS: SODIUM CHLORIDE 0.9% 1,000 ML IV SCH (01:01)
[2023-09-09] MEDS: AZITHROMYCIN 500 MG in SODIUM CHLORIDE 0.9% 250 ML IVPB SCH (01:55)
[2023-09-09] MEDS: PANTOPRAZOLE 40 MG TABLET PO SCH (06:29)
[2023-09-09] MEDS: BUDESONIDE 1 MG/2 ML NEBU INHALATION SCH (07:50)
[2023-09-09] MEDS: IPRATROPIUM-ALBUTEROL 3 ML NEB INHALATION SCH ×2 (07:50→11:28)
[2023-09-09] MEDS: FORMOTEROL FUMARATE 20 MCG/2 ML NEBU INHALATION SCH (08:07)
[2023-09-09] MEDS: LORATADINE 10 MG TAB PO SCH (08:56)
[2023-09-09] MEDS: FLUTICASONE 50MCG/SPRAY NASAL 16GM EA NOSTRIL SCH (08:56)
[2023-09-09 09:49] VITALS: BP 144/88; TEMP 97.8
[2023-09-09 11:49] VITALS: PULSE 74
--- NOTE | 2023-09-09 11:55 | P.GSCN ---
History of Present Illness Consult date: 09/09/23 History of present illness: Basil is a 68-year-old male who was told to come to the hospital with hemoptysis, low-grade fever and chills, decreased appetite and mild weight loss. He was found to have a lung mass and upon further workup and scans was found to have an abdominal aortic aneurysm for which were counseled. The patient is not aware of any aneurysm these had in the past. He denies a family history of aneurysm that is aware of. He does have a remote history of smoking as well as hypertension. Otherwise he feels active and healthy without any concerns. Past Medical History Past Medical History: Hypertension Additional Past Medical History / Comment(s): CHRONIC BRONCHITIS History of Any Multi-Drug Resistant Organisms: None Reported Past Surgical History: No Surgical Hx Reported Additional Past Surgical History / Comment(s): CARPAL TUNNEL Past Anesthesia/Blood Transfusion Reactions: No Reported Reaction Past Psychological History: No Psychological Hx Reported Smoking Status: Never smoker Past Alcohol Use History: None Reported Past Drug Use History: None Reported - Past Family History Father Additional Family Medical History / Comment(s): STROKE Mother Family Medical History: Renal Disease Medications and Allergies Home Medications Medication Instructions Recorded Confirmed Type Albuterol Inhaler [Ventolin Hfa 2 puff INHALATION RT-Q6H PRN 09/05/23 09/05/23 History Inhaler] Aspirin EC [Ecotrin Low Dose] 81 mg PO DAILY 09/05/23 09/05/23 History Azithromycin [Zithromax Z Pack] See Taper PO DIRECTED 09/05/23 09/05/23 Histo ry Cetirizine HCl [Zyrtec] 10 mg PO DAILY 09/05/23 09/05/23 History Fluticasone Nasal [place] [Flonase 1 spray EA NOSTRIL DAILY 09/05/23 09/05/23 History Nasal [place]] Fluticasone/Umeclidin/Vilanter 1 puff INHALATION RT-DAILY 09/05/23 09/05/23 History [Trelegy Ellipta 200-62.5-25] Labetalol [Trandate] 100 mg PO BID 09/05/23 09/05/23 History Montelukast [Singulair] 10 mg PO DAILY 09/05/23 09/05/23 History Nystatin 100,000 Unit/ml Susp 4 ml PO QID 09/05/23 09/05/23 History [Mycostatin Oral Susp] Sulfamethox-Tmp 800-160Mg [Bactrim 1 tab PO Q12HR 09/05/23 09/05/23 History DS 800-160 mg] predniSONE [Deltasone] 40 mg PO DAILY 09/05/23 09/05/23 History Allergies Allergy/AdvReac Type Severity Reaction Status Date / Time No Known Allergies Allergy Verified 09/05/23 22:57 Surgical - Exam Vital Signs Temp Pulse Resp BP Pulse Ox 97.6 F 83 16 139/57 96 09/05/23 16:51 09/05/23 16:51 09/05/23 16:51 09/05/23 16:51 09/05/23 16:51 Gen. is a pleasant cooperative male in no acute distress. Heart is regular. Lungs are clear. Abdomen is soft, nontender and non-distended. No palpable masses noted. Excisional clubbing, cyanosis or edema. Easily palpable radial, dorsalis pedis pulses bilaterally. Results - Labs 09/06/23 05:42 09/06/23 05:42 Abnormal Lab Results - Last 24 Hours (Table) 09/08/23 09/08/23 Range/Units 15:00 15:05 Fluid Appearance Bloody A Bloody A (Clear) Microbiology - Last 24 Hours (Table) 09/08/23 15:00 Gram Stain - Preliminary Bronchoalviolar Lavage - Right 09/08/23 15:05 Gram Stain - Preliminary Bronchial Washings - Random 09/05/23 22:20 Blood Culture - Preliminary Blood 09/05/23 22:35 Blood Culture - Preliminary Blood 09/06/23 08:24 Gram Stain - Final Sputum Sputum Culture - Final Assessment and Plan Assessment: Infrarenal abdominal aortic aneurysm Bilateral common iliac artery aneurysmal disease Bilateral internal iliac artery aneurysms Right lung mass with mediastinal lymphadenopathy and 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 Given everything is going on this point we'll plan popliteal outpatient to have further discussion regarding potential repair. I have sent a disc to the stent representatives in order to allow for sizing. Discussed with them the risks of bleeding, infection, potential rupture risk and other factors that will determine the course overall. They seemingly understand and have no further questions at this time.
--- NOTE | 2023-09-09 12:42 | P.PN ---
Subjective Progress Note Date: 09/09/23 I am seeing this patient in new consultation today 09/06/2023 in the emergency room after he presented yesterday afternoon with complaints of shortness of breath and hemoptysis. He also had an abnormal chest x-ray at his PCP office, Dr. Leal out of [place]. Patient is a 68-year-old white male with past medical history significant for COPD, former tobacco smoker quit approximately 30 years ago, hypertension. Patient has been suffering from a progressively worsening shortness of breath. Persistent nonproductive cough for the last couple weeks. He was seen in the pulmonary office by Dr. Prasad on August 28 for these symptoms. He was switched to Trelegy Ellipta inhaler. Patient does have moderate chronic obstructive pulmonary disease. The Patient has been experiencing worsening shortness of breath since Monday morning. He also developed small amount of hemoptysis starting yesterday. He denies any significant fevers, chills, chest pain. He does admit an 8 pound weight loss over the last month. He does have a significant previous smoking history, quitting over 10 years ago. Denies history of cancer. 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 There are pathologically enlarged mediastinal and hilar lymph nodes. There was also posterior patchy consolidation concerning for right lower lobe obstructive pneumonia. CBC on arrival was fairly unremarkable. WBC count 10.6, hemoglobin 15.7, hematocrit 46.8, platelets 214. BMP on arrival showed a sodium 134, potassium 5, chloride 102, serum bicarb 19, BUN 21, creatinine 1.09, glucose 148 . Troponin less than 0.012. NT proBNP 48. Normal saline is infusing at 20 mL's per hour. He has been started on empiric antibiotics for community acquired pneumonia including azithromycin and ceftriaxone. He is currently sitting up in bed, on room air, in no acute distress. He is just ambulated to the bathroom and back without any respiratory difficulty. No further hemoptysis. Patient appears hemodynamically stable and nontoxic, is being admitted to the general medical floor. The patient is seen today 09/07/2023 in follow-up on the regular medical floor. He is currently sitting up in a chair at the bedside. His is present. He denies any worsening shortness of breath, cough or congestion. He is maintaining O2 saturations in the 90s on room air. He is afebrile. Hemodynami lina stable. He is continued on Pulmicort and Perforomist inhalations, DuoNeb inhalations, Solu-Medrol. He remains on ceftriaxone and azithromycin for suspected postobstructive pneumonia. MRI of the brain reveals evidence of metastatic disease within the bilateral frontal lobes and right cerebral hemisphere. Computed tomography scan of the abdomen and pelvis reveals a 6 cm fusiform infrarenal abdominal aortic aneurysm spinning 10 cm to the aortic bifurcation. There is contiguous fusiform enlargement of the right common iliac artery up to 3.2 cm the left common iliac artery up to 2.7 cm. There is a 2.3 cm fusiform aneurysm in the right internal iliac artery and a 2.0 cm fusiform aneurysm in the left internal iliac artery. Blood cultures are pending. Sputum culture pending. The patient is seen today 09/08/2023 in follow-up on the regular medical floor. He is up ambulating in his room. Awake and alert in no acute distress. He is maintaining good O2 saturations in the 90s on room air. He's been afebrile. Hemodynamically stable. No IV fluids. He remains on DuoNeb inhalations, Pulmicort and Perforomist inhalations, Solu-Medrol. Antibiotics in the form of ceftriaxone and azithromycin. Tessalon Perles for his cough. Cultures are revealing no growth. Sputum culture revealed no growth. The plan is for bronchoscopy with BAL and biopsies today. The patient is seen today 09/09/2023 in follow-up on the regular medical floor. He is awake and alert in no acute distress. Maintaining good O2 saturations in the 90s on 3 L/m per nasal cannula. Normal saline at KVO. He did undergo bronchoscopy with BAL and biopsies yesterday. Cultures and cytology are pending. He is continued on DuoNeb inhalations, Pulmicort and Perforomist inhalations, Solu-Medrol. Remains on ceftriaxone and azithromycin. He is anxious to go home. Objective - Vital Signs Vital signs: Vital Signs Temp 97.8 F 09/09/23 07:29 Pulse 74 09/09/23 11:39 Resp 18 09/09/23 07:29 BP 144/88 09/09/23 07:29 Pulse Ox 94 L 09/09/23 07:29 FiO2 Intake & Output 09/08/23 09/09/23 09/09/23 18:59 06:59 18:59 Intake Total 900 Balance 900 Intake: IV 900 Other: # Voids 4 1 - Exam GENERAL EXAM: Alert, pleasant 68-year-old male patient. Currently on 3 liters nasal cannula, comfortable in no apparent distress. HEAD: Normocephalic and atraumatic EYES: Normal reaction of pupils, equal size. NOSE: Clear with pink turbinates. THROAT: No erythema or exudates. NECK: No masses, no JVD. CHEST: No chest wall deformity. LUNGS: Equal air entry with rhonchorous breath sounds of the right lung. Left lung clear on auscultation. CVS: S1 and S2 normal with no audible murmur, regular rhythm. No extra heart sounds ABDOMEN: No hepatosplenomegaly, active bowel sounds, no guarding or rigidity. SPINE: No scoliosis or deformity SKIN: No rashes CENTRAL NERVOUS SYSTEM: No focal deficits, tone is normal in all 4 extremities. EXTREMITIES: There is no peripheral edema, clubbing, or cyanosis. Peripheral pulses are intact. - Labs CBC & Chem 7: 09/06/23 05:42 09/06/23 05:42 Labs: Abnormal Lab Results - Last 24 Hours (Table) 09/08/23 09/08/23 Range/Units 15:00 15:05 Fluid Appearance Bloody A Bloody A (Clear) Microbiology - Last 24 Hours (Table) 09/08/23 15:00 Gram Stain - Preliminary Bronchoalviolar Lavage - Right 09/08/23 15:05 Gram Stain - Preliminary Bronchial Washings - Random 09/05/23 22:20 Blood Culture - Preliminary Blood 09/05/23 22:35 Blood Culture - Preliminary Blood 09/06/23 08:24 Gram Stain - Final Sputum Sputum Culture - Final Assessment and Plan Assessment: Right infrahilar mass, measuring 10.2 x 13 cm ascending into the inferior mediastinum concerning for bronchiogenic carcinoma. There were pathologically enlarged mediastinal and hilar lymph nodes. There was also posterior patchy consolidation concerning for right lower lobe obstructive pneumonia. MRI of the brain reveals evidence of metastatic disease within the bilateral frontal lobes and right cerebral hemisphere. He did undergo bronchoscopy and biopsies of the right lung on 09/08/2023 Suspected community acquired pneumonia, appears post-obstructive Abdominal aortic aneurysm. Computed tomography scan of the abdomen and pelvis reveals a 6 cm fusiform infrarenal abdominal aortic aneurysm spinning 10 cm to the aortic bifurcation. There is contiguous fusiform enlargement of the right common iliac artery up to 3.2 cm the left common iliac artery up to 2.7 cm. There is a 2.3 cm fusiform aneurysm in the right internal iliac artery and a 2.0 cm fusiform aneurysm in the left internal iliac artery. Exacerbation of moderate chronic obstructive pulmonary disease, currently maintained on Trelegy inhaler on an outpatient basis along with when necessary Ventolin HFA Ex tobacco smoker, quitting 10 years ago Benign essential hypertension Plan: The patient was seen and evaluated Medications reviewed Potential for discharge from the pulmonary standpoint Change antibiotics to Augmentin for 5 more days Continue Symbicort and albuterol Decadron 4 mg by mouth every 6 hours Follow-up closely with oncology, radiation oncology Follow-up with vascular surgery regarding aneurysms Follow-up in our office in 1 week for biopsy results I have personally seen and examined the patient, performed the documentation and the assessment and plan as written. Number of minutes spent on the visit: 10.
--- NOTE | 2023-09-09 15:13 | P.DS ---
Providers Date of admission: 09/05/23 23:04 Expected date of discharge: 09/09/23 Attending physician: Jassi Arnett Consults: 09/05/23 22:43 Consult Physician Routine Consulting Provider: Adrian Prasad Consult Reason/Comments: PNEUMONIA Do you want consulting provider notified?: Yes 09/06/23 03:12 Consult Physician Routine Consulting Provider: Fly Armas Consult Reason/Comments: Right infrahilar mass Do you want consulting provider notified?: Yes, Notify in am 09/07/23 08:54 Consult Physician Routine Consulting Provider: Jesus Sweeney Consult Reason/Comments: brain mets Do you want consulting provider notified?: Already Contacted 09/08/23 13:39 Consult Physician Urgent Consulting Provider: Adiel Martin Consult Reason/Comments: Infrarenal AAA 6 cm Do you want consulting provider notified?: Yes Primary care physician: Alejandro Leal [place] [facility] Course: Chief Complaint: Short of breath This is a pleasant 68-year-old patient who follows with Dr. Alejandro Leal. About a week ago patient started seeing scada operator Dr. Prasad. Earlier this year in the spring patient was diagnosed with flu. Patient did improve but now recovered. Having some wheezing. He didn't follow up with his PCP. Was treated antibiotic steroids symptoms still persisted. Ex-smoker. Patient did follow with Dr. Prasad and told he was told that he has reduced lung function. COPD. Patient now presents to ER with his and daughter. Coughing of blood. Since yesterday. Has some low-grade fever and chills. Decreased appetite. Has Lost Some Weight. September 06: Some decrease in cough. No more hemoptysis. Short of breath wheezing. Plan for bronchoscopy and Monday. On IV ceftriaxone. Steroids. Patient has a right hilar mass. September 07: Some shortness of breath and wheezing. Did cough up some more blood. at the bedside. For bronchoscopy tomorrow. September 08: Patient is pending bronchoscopy this afternoon. Coughing up some blood. Some wheezing. Family the bedside. Nothing by mouth. September 10: Patient had bronchoscopy and biopsy yesterday. Breathing much improved. Pulse ox today is 91-92%. Questions also the patient and the daughter the bedside. Patient to follow-up with Dr. Menon, Dr. Moss and Dr. Sheppard. He'll complete a short course of antibiotic and to prednisone taper. Questions answered Discussion and discharge planning more than 35 minutes Past medical history to include: Social history: Patient smoked for about 45 years stopped about 10 years ago. 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 . Physical examination: VITAL SIGNS: 97.8, 83, 18, 144/88, 94% room air GENERAL: We have comfortable EYES: Pupils equal. Conjunctiva normal. HEENT: External appearance of nose and ears normal, oral cavity grossly normal. NECK: JVD not raised; masses not palpable. HEART: First and second heart sounds are normal; no edema. LUNGS: Respiratory rate normal; improved air entry ABDOMEN: Soft, nontender, liver spleen not palpable, no masses palpable. PSYCH: Alert and oriented x3; mood and affect normal. MUSCULOSKELETAL:No Clubbing/cyanosis;muscles-grossly intact. OA INVESTIGATIONS, reviewed in the clinical context: CT abdomen pelvis with contrast: 6 cm fusiform infrarenal AAA spanning density because of the aortic bifurcation. Cardiac was fusiform enlargement of the right common iliac artery up to 3.2 cm. Left common iliac artery up to 2.7 cm. Also that of the right internal iliac artery MRI of the brain with and without contrast: Evidence of metastatic disease to bilateral frontal lobes and right cerebral hemisphere. Chest x-ray film personally reviewed by me-right lower lobe mass versus pneumonia. Coarse interstitium. Hyperinflation Chest CTA: Large right infrahilar mass 10.2 x 13 cm. Extending into the inferior mediastinum. Pathologic enlargement of mediastinal and hilar lymph nodes. September 06: White count 11.1 hemoglobin 4.6 potassium 4.8 creatinine 0.95 September 05: White count 10.6 hemoglobin 15.7 platelets 214 sodium 134 potassium 5 BUN 21 creatinine 1.09 Assessment and plan: -Pneumonia suspect gram-negative organism.: Better IV steroids. IV antibiotics. Augmentin 875 twice a day for 2 days -Right hilar mass with enlarged lymph nodes.: MRI brain showing metastatic disease. Bilateral frontal lobes and right cerebral hemisphere Being followed by pulmonary. Status post bronchoscopy with biopsy.-Pending results Follow-up with Dr Raheem Menon outpatient -6 cm fusiform infrarenal AAA and additional fusiform enlargement of the left and right atrial neck arteries. Follow-up with Dr. Moss outpatient -Sigmoid diverticulosis. Unremarkable -Acute COPD exacerbation and a prior smoker: Better trelegy, prednisone taper, Ventolin when necessary -Obesity BMI 30.8 Weight loss measures -Essential hypertension Cozaar 50 mg daily at bedtime Disposition: Home Plan - Discharge Summary Discharge Rx Participant: Yes New Discharge Prescriptions: New predniSONE 10 mg PO DAILY #30 tab Pantoprazole [Protonix] 40 mg PO AC-BRKFST #30 tab Acetaminophen Tab [Tylenol] 650 mg PO Q6HR PRN tab PRN Reason: Mild Pain Or Fever > 100.5 Amoxic-Pot Clav 875-125Mg [Augmentin 875-125] 1 each PO Q12HR #4 tab Losartan [Cozaar] 50 mg PO HS #30 tab Continue Albuterol Inhaler [Ventolin Hfa Inhaler] 2 puff INHALATION RT-Q6H PRN PRN Reason: Shortness Of Breath Fluticasone Nasal [place] [Flonase Nasal [place]] 1 spray EA NOSTRIL DAILY Aspirin EC [Ecotrin Low Dose] 81 mg PO DAILY Fluticasone/Umeclidin/Vilanter [Trelegy Ellipta 200-62.5-25] 1 puff INHALATION RT-DAILY Montelukast [Singulair] 10 mg PO DAILY Cetirizine HCl [Zyrtec] 10 mg PO DAILY Discontinued predniSONE [Deltasone] 40 mg PO DAILY Nystatin 100,000 Unit/ml Susp [Mycostatin Oral Susp] 4 ml PO QID Labetalol [Trandate] 100 mg PO BID Sulfamethox-Tmp 800-160Mg [Bactrim DS 800-160 mg] 1 tab PO Q12HR Azithromycin [Zithromax Z Pack] See Taper PO DIRECTED Discharge Medication List Albuterol Inhaler [Ventolin Hfa Inhaler] 2 puff INHALATION RT-Q6H PRN 09/05/23 [History] Aspirin EC [Ecotrin Low Dose] 81 mg PO DAILY 09/05/23 [History] Cetirizine HCl [Zyrtec] 10 mg PO DAILY 09/05/23 [History] Fluticasone Nasal [place] [Flonase Nasal [place]] 1 spray EA NOSTRIL DAILY 09/05/23 [History] Fluticasone/Umeclidin/Vilanter [Trelegy Ellipta 200-62.5-25] 1 puff INHALATION RT-DAILY 09/05/23 [History] Montelukast [Singulair] 10 mg PO DAILY 09/05/23 [History] Acetaminophen Tab [Tylenol] 650 mg PO Q6HR PRN tab 09/09/23 [Rx] Amoxic-Pot Clav 875-125Mg [Augmentin 875-125] 1 each PO Q12HR #4 tab 09/09/23 [Rx] Losartan [Cozaar] 50 mg PO HS #30 tab 09/09/23 [Rx] Pantoprazole [Protonix] 40 mg PO AC-BRKFST #30 tab 09/09/23 [Rx] predniSONE 10 mg PO DAILY #30 tab 09/09/23 [Rx] Follow up Appointment(s)/Referral(s): Gretchen Bruno MD [STAFF PHYSICIAN] - 1 Week (please call office Tuesday 09/11 for follow-up appt) Jesus Sweeney MD [STAFF PHYSICIAN] - 09/19/23 9:45 am (arrive 30 minutes early for paperwork (9:15 am).) Gisella Moss DO [STAFF PHYSICIAN] - 10 Days (please call office Tuesday 09/11 for follow-up appt) Adrian Prasad DO [Doctor of Osteopathic Medicine] - 1 Week (please call office Tuesday 09/11 for follow-up appt) Alejandro Leal MD [Primary Care Provider] - 1 Week (please call office Tuesday 09/11 for follow-up appt)
[2023-09-09] MEDS ORDERED: dexAMETHasone 4 MG TAB PO SCH (18:00)
[2023-09-09] MEDS ORDERED: SYMBICORT 160-4.5 MCG INHALER INHALATION SCH (20:00)
[2023-09-09] MEDS ORDERED: AMOXIC-POT CLAV 875-125MG 1 EACH TAB PO SCH (21:00)
[2023-09-10] MEDS ORDERED: methylPREDNISolone 4 MG TAB TAPER PO SCH (09:00)
[2023-09-11 09:53] LABS: Nucleated Cells, Body Fluid 325 /UL
[2023-09-11 10:04] LABS: Appearance,BF Bloody (Clear)
[2023-09-11 10:09] LABS: Nucleated Cells, Body Fluid 338 /UL
[2023-09-11 10:20] LABS: RBC, Body Fluid 238500 /UL (0-2000)
--- NOTE | 2023-09-12 13:50 | P.CONS ---
History of Present Illness - Reason for Consult Consult date: 09/07/23 Concern for brain metastases Requesting physician: Gretchen Bruno - Chief Complaint "I am feeling good" - History of Present Illness Mr. Adame is a 68-year-old male with concern for metastatic right lung cancer with 3 areas of enhancement in the brain suspicious for DINING ROOM ATTENDANT metastases. His pertinent history begins with progressively worsening shortness of breath and cough. This prompted ED visit. CTA chest on 09/05/2023 demonstrated a 13.0 cm right infrahilar mass with hilar and mediastinal nodes. There was also concern for postobstructive pneumonia/atelectasis. MRI brain on 09/06/2023 demonstrated a 1.6 cm lesion in the left frontal lobe, a 4 mm lesion in the right cerebellar lobe, and 6 mm lesion in the right frontal lobe. He is being treated with steroids and antibiotics. He is scheduled for bronchoscopy tomorrow. Today, he notes he is doing very well. His breathing has improved and he is not on oxygen. He denies headaches or any neurological deficits. He has never had cancer or radiation therapy. He does not have a pacemaker. Review of Systems negative except as per HPI Past Medical History Past Medical History: Hypertension Additional Past Medical History / Comment(s): CHRONIC BRONCHITIS History of Any Multi-Drug Resistant Organisms: None Reported Past Surgical History: No Surgical Hx Reported Additional Past Surgical History / Comment(s): CARPAL TUNNEL Past Anesthesia/Blood Transfusion Reactions: No Reported Reaction Past Psychological History: No Psychological Hx Reported Smoking Status: Never smoker Past Alcohol Use History: None Reported Past Drug Use History: None Reported - Past Family History Father Additional Family Medical History / Comment(s): STROKE Mother Family Medical History: Renal Disease Medications and Allergies Home Medications Medication Instructions Recorded Confirmed Type Albuterol Inhaler [Ventolin Hfa 2 puff INHALATION RT-Q6H PRN 09/05/23 09/05/23 History Inhaler] Aspirin EC [Ecotrin Low Dose] 81 mg PO DAILY 09/05/23 09/05/23 History Cetirizine HCl [Zyrtec] 10 mg PO DAILY 09/05/23 09/05/23 History Fluticasone Nasal [place] [Flonase 1 spray EA NOSTRIL DAILY 09/05/23 09/05/23 History Nasal [place]] Fluticasone/Umeclidin/Vilanter 1 puff INHALATION RT-DAILY 09/05/23 09/05/23 History [Trelegy Ellipta 200-62.5-25] Montelukast [Singulair] 10 mg PO DAILY 09/05/23 09/05/23 History Acetaminophen Tab [Tylenol] 650 mg PO Q6HR PRN tab 09/09/23 Rx Amoxic-Pot Clav 875-125Mg 1 each PO Q12HR #4 tab 09/09/23 Rx [Augmentin 875-125] Losartan [Cozaar] 50 mg PO HS #30 tab 09/09/23 Rx Pantoprazole [Protonix] 40 mg PO AC-BRKFST #30 tab 09/09/23 Rx predniSONE 10 mg PO DAILY #30 tab 09/09/23 Rx Allergies Allergy/AdvReac Type Severity Reaction Status Date / Time No Known Allergies Allergy Verified 09/05/23 22:57 Physical Exam - Constitutional General appearance: average body habitus - Respiratory Respiratory: negative: prolonged expiration, prolonged inspiration - Neurologic no focal deficits Neurologic: CNII-XII intact Results CBC & Chem 7: 09/06/23 05:42 09/06/23 05:42 Labs: Microbiology - Last 24 Hours (Table) 09/08/23 15:05 Acid Fast Bacilli Smear - Preliminary Bronchial Washings - Random 09/08/23 15:05 Gram Stain - Final Bronchial Washings - Random Bronchial Washings Culture - Final 09/08/23 15:00 Acid Fast Bacilli Smear - Preliminary Bronchoalviolar Lavage - Right 09/08/23 15:00 Gram Stain - Final Bronchoalviolar Lavage - Right Bronchial Washings Culture - Final Assessment and Plan Assessment: Mr. Adame is a 68-year-old male with concern for metastatic right lung cancer with 3 areas of enhancement in the brain suspicious for DINING ROOM ATTENDANT metastases. Plan: The patient's clinical picture is consistent with metastatic lung cancer with 3 DINING ROOM ATTENDANT metastases. He will require tissue confirmation of malignancy and is scheduled for bronchoscopy tomorrow. I tentatively recommend a course of stereotactic radiosurgery to all 3 brain lesions. He will follow-up with me as an outpatient within the next ~1 week for further discussion and treatment planning. Jesus Sweeney MD Radiation Oncology Time with Patient: Greater than 30
--- NOTE | 2023-09-12 18:31 | PCN ---
PROCEDURE NOTE PROCEDURES PERFORMED: Bronchoscopy, airway examination, therapeutic lavage, bronchoalveolar lavage, brushes to the right lung including right upper lobe, right middle lobe, and right lower lobe; and endobronchial and transbronchial biopsies in the right lung, particularly in the right upper lobe and right lower lobe. PREOPERATIVE DIAGNOSIS: Rule out lung cancer. POSTOPERATIVE DIAGNOSIS: Rule out lung cancer. SENIOR DATABASE ADMINISTRATOR: Dr. Prasad. He was assisted by Meena Miles for ophthalmic surgical assistant. There was informed consent and universal timeout. The patient's procedure took place in room #1 [facility]. ANESTHESIA PROVIDED: General anesthesia. DESCRIPTION OF PROCEDURE: The patient was intubated for the procedure. After the patient was intubated and being fully monitored, the bronchoscope was passed through the bronchoscope adapter connected to the endotracheal tube, and the bronchoscope was passed into the end of the endotracheal tube, into the distal trachea. The tracheal jaya was sharp. The right and left mainstem were topicalized. The left lung was evaluated first. The left upper lobe proper and its 2 segments, the lingula and its 2 segments and the left lower lobe and its 4 segments all were normal in appearance. There was no mass or tumor. The mucosa looked normal. On the right side, there were distinct abnormalities noted, in the right upper lobe, right middle lobe, and right lower lobe. The mucosa was vascular and heaped. It looked like there was endobronchial disease. There was no dominant mass or tumor, but the jaya the right upper lobe from the bronchus intermedius was definitely abnormal, as was the jaya the right middle lobe and right lower lobe. Next, under fluoroscopic guidance, we did brushes of right upper lobe, right middle lobe, right lower lobe. In addition, under fluoroscopic guidance, we did multiple endobronchial and transbronchial biopsies in the upper lobe, middle lobe and lower lobe. The patient had minimal bleeding. He tolerated the procedure well. Next we did a BAL in the right middle lobe and right lower lobe. The patient appeared to tolerate the procedure very well. There was no obvious pneumothorax noted on fluoroscopy, before the bronchoscope was withdrawn. Next, the bronchoscope was withdrawn and the patient will be recovered by Anesthesia. There was no immediate complication. The patient tolerated the procedure well, was stable throughout the procedure. MMODL / IJN: [id number] / [facility]
--- NOTE | 2023-09-14 11:44 | CDI ---
Documentation Clarification Form Date: 09/14/2023 10:57:48 AM From: Kaleigh Nance Admit Date: 09/05/2023 11:04:00 PM Patient Name: Basil Adame Visit Number: [id number] Discharge Date: 09/09/2023 03:19:00 PM ATTENTION: The Clinical Documentation Specialists (CDI) and [facility] Coding Staff appreciate your assistance in clarifying documentation. Please respond to the clarification below the line at the bottom and electronically sign. The CDI & [facility] Coding staff will review the response and follow-up if needed. Please note: Queries are made part of the Legal Health Record. If you have any questions, please contact the author of this message via ITS. Dr. Jassi Arnett The final diagnosis of the pathology report states scattered atypical cells suspicious for non small cell carcinoma and cannot exclude non small cell carcinoma for RLL brushing, RML brushing. Coding guidelines do not allow coding professionals to code based on pathology results; therefore, clarification is requested. 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 Right hilar mass with enlarged lymph nodes. Clinical Indicators: Path report from bronchoscopy with biopsy Treatment: Bronchosopy with brushings and BAL Please clarify if you agree with the pathology report diagnosis of atypical cells suspicious for non small cell carcinoma.: [ + ] Yes [ ] No [ ] Other (please specify) [ ] Unable to determine MTDD
== END 2023-09-09 15:19 | disposition home or self-care (01) | DRG 166 ==
LOC: EC 16:31 → 4SSUR 23:04 → 1SOBS 09-06 05:23 → 4SSUR 09-06 06:44
PROVIDERS: ADMIT Hospitalist; ATTEND Hospitalist
PROC: 0BDF8ZX Extraction of Right Lower Lung Lobe, Via Natural or Artificial Opening Endoscopic, Diagnostic (ICD-10-PCS; principal; 2023-09-08 13:35)
PROC: 0B9D8ZX Drainage of Right Middle Lung Lobe, Via Natural or Artificial Opening Endoscopic, Diagnostic (ICD-10-PCS; principal; 2023-09-08 13:35)
PROC: 0BD48ZX Extraction of Right Upper Lobe Bronchus, Via Natural or Artificial Opening Endoscopic, Diagnostic (ICD-10-PCS; principal; 2023-09-08 13:35)
PROC: 0B9C8ZX Drainage of Right Upper Lung Lobe, Via Natural or Artificial Opening Endoscopic, Diagnostic (ICD-10-PCS; principal; 2023-09-08 13:35)
PROC: 0BBC8ZX Excision of Right Upper Lung Lobe, Via Natural or Artificial Opening Endoscopic, Diagnostic (ICD-10-PCS; principal; 2023-09-08 13:35)
PROC: 0BD58ZX Extraction of Right Middle Lobe Bronchus, Via Natural or Artificial Opening Endoscopic, Diagnostic (ICD-10-PCS; principal; 2023-09-08 13:35)
DX: C34.01 Malignant neoplasm of right main bronchus (principal); J15.69 Pneumonia due to other Gram-negative bacteria; C79.31 Secondary malignant neoplasm of brain; J44.0 Chronic obstructive pulmonary disease with (acute) lower respiratory infection; J44.1 Chronic obstructive pulmonary disease with (acute) exacerbation; R04.2 Hemoptysis; Z87.891 Personal history of nicotine dependence; Z20.822 Contact with and (suspected) exposure to COVID-19; Z28.21 Immunization not carried out because of patient refusal; E66.9 Obesity, unspecified; B34.9 Viral infection, unspecified; I11.0 Hypertensive heart disease with heart failure; I50.9 Heart failure, unspecified; I71.43 Infrarenal abdominal aortic aneurysm, without rupture; I72.3 Aneurysm of iliac artery; Z68.30 Body mass index [BMI] 30.0-30.9, adult; Z79.82 Long term (current) use of aspirin; Z79.899 Other long term (current) drug therapy; K57.90 Diverticulosis of intestine, part unspecified, without perforation or abscess without bleeding; R63.4 Abnormal weight loss; Z79.52 Long term (current) use of systemic steroids; Z79.85 Long-term (current) use of injectable non-insulin antidiabetic drugs
CPT/HCPCS: 31623; 31624; 31625; 36415; 70553; 71046; 71275; 74177; 80048; 80053; 81001; 83880; 84484; 85025; 85610; 85730; 87040; 87070; 87102; 87116; 87205; 87206; 87496; 87498; 87502; 87529; 87634; 87636; 87798; 88104; 88108; 88305; 88341; 88342; 89050; 93005; 94640; 94760; 96360; 96365; 96366; 96375; 99285